=== PATIENT | male | born 1945 | race Caucasian/White ===

== ENCOUNTER → 2020-11-11 12:06 | Outpatient (CLI) | payer MEDICARE, OTHER, SELFPAY ==
[2020-11-11 20:10] LABS: Prostate Specific Antigen 3.06 ng/mL (0.10-4.00)
== END ==
PROVIDERS: Family Provider Family Medicine; Visit Provider Specialist
DX: Z87.898 Personal history of other specified conditions (principal); R97.20 Elevated prostate specific antigen [PSA]; N40.0 Benign prostatic hyperplasia without lower urinary tract symptoms
CPT/HCPCS: 84153

== ENCOUNTER → 2021-01-21 11:40 | Outpatient (CLI) | payer MEDICARE, OTHER, SELFPAY ==
[2021-01-21 20:20] LABS: Alanine Aminotransferase 24 IU/L (<50); Albumin 4.3 g/dL (3.5-5.0); Albumin Globulin Ratio 1.5 (1.0-2.8); Alkaline Phosphatase 86 U/L (38-126); Aspartate Aminotransferase 27 IU/L (17-59); BUN Creatinine Ratio 20.7 (6-22); Bilirubin Total 0.9 mg/dL (0.2-1.3); Blood Urea Nitrogen 17 mg/dL (9-20); Calcium 9.3 mg/dL (8.4-10.2); Carbon Dioxide 26 mmol/L (22-32); Chloride 105 mmol/L (98-107); Cholesterol 182 mg/dL (140-199); Estimated Glomerular Filt Rate > 60.0 mL/min (>60); Globulin 2.8 g/dL (1.7-4.1); Glucose 109 mg/dL (80-110); HDL Cholesterol 56 mg/dL (40-60); HEMOLYSIS < 15 (0-50); LDL Cholesterol Calculated 105 mg/dL (<100); Sodium 138 mmol/L (137-145); Total Protein 7.1 g/dL (6.3-8.2); Triglycerides 106 mg/dL (35-150)
== END ==
PROVIDERS: Family Provider Family Medicine; Visit Provider Family Medicine
DX: E78.5 Hyperlipidemia, unspecified (principal); H53.9 Unspecified visual disturbance; I25.10 Atherosclerotic heart disease of native coronary artery without angina pectoris; I25.119 Atherosclerotic heart disease of native coronary artery with unspecified angina pectoris; I34.1 Nonrheumatic mitral (valve) prolapse
CPT/HCPCS: 80053; 80061

== ENCOUNTER → 2021-10-25 08:43 | Outpatient (CLI) | payer MEDICARE, OTHER, SELFPAY ==
[2021-10-25 19:41] LABS: COVID19 - ORCAS (NP or Nasal) Negative (Negative)
== END ==
PROVIDERS: Family Provider Family Medicine; PCP Family Medicine; Visit Provider Physician Assistant
DX: I49.9 Cardiac arrhythmia, unspecified (principal); Z20.822 Contact with and (suspected) exposure to COVID-19
CPT/HCPCS: C9803; U0003

== ENCOUNTER → 2021-12-13 13:07 | Outpatient (CLI) | payer MEDICARE, OTHER, SELFPAY | PROVIDERS: Family Provider Family Medicine; PCP Family Medicine; Visit Provider Specialist | DX: N40.1 Benign prostatic hyperplasia with lower urinary tract symptoms (principal); R35.1 Nocturia; R97.20 Elevated prostate specific antigen [PSA] | CPT/HCPCS: 84153 ==

== ENCOUNTER → 2022-03-20 07:14 | Outpatient (CLI) | payer MEDICARE, OTHER, SELFPAY ==
[2022-03-20 20:43] LABS: COVID19 - ORCAS (NP or Nasal) Negative (Negative)
== END ==
PROVIDERS: Family Provider Family Medicine; PCP Family Medicine; Visit Provider Family Medicine
DX: Z01.812 Encounter for preprocedural laboratory examination (principal)
CPT/HCPCS: C9803; U0003

== ENCOUNTER → 2022-05-31 13:01 | Outpatient (CLI) | payer MEDICARE, OTHER, SELFPAY ==
[2022-06-04 11:29] LABS: PSA Free % 33.1 % (.); PSA, Total 3.5 ng/mL (0.0-4.0)
== END ==
PROVIDERS: Family Provider Family Medicine; PCP Family Medicine; Visit Provider Specialist
DX: R97.20 Elevated prostate specific antigen [PSA] (principal)
CPT/HCPCS: 84153; 84154

== ENCOUNTER → 2022-06-28 09:34 | Outpatient (CLI) | payer MEDICARE, OTHER, SELFPAY ==
[2022-06-28 19:53] LABS: Cholesterol 137 mg/dL (140-199); Glucose 100 mg/dL (80-110); HDL Cholesterol 36 mg/dL (40-60); LDL Cholesterol Calculated 73 mg/dL (<100); Triglycerides 142 mg/dL (35-150)
[2022-06-28 19:54] LABS: Creatinine Urine Random 92.3 mg/dL
[2022-06-28 19:56] LABS: Microalbumi Creatinin Ratio Ur 87.7 ug/mg CR (<30); Microalbumin Urine Random 8.1 mg/dL (0-1.6)
[2022-06-29 18:02] LABS: Hep C Virus Ab w/Reflex Quant NEGATIVE s/c (NEGATIVE)
== END ==
PROVIDERS: Family Provider Family Medicine; PCP Family Medicine; Visit Provider Family Medicine
DX: Z00.00 Encounter for general adult medical examination without abnormal findings (principal); I25.10 Atherosclerotic heart disease of native coronary artery without angina pectoris; Z11.59 Encounter for screening for other viral diseases; Z13.1 Encounter for screening for diabetes mellitus; Z13.220 Encounter for screening for lipoid disorders
CPT/HCPCS: 80061; 82043; 82570; 82947; 86803

== ENCOUNTER → 2022-09-11 15:45 | Outpatient (CLI) | payer MEDICARE, OTHER, SELFPAY ==
[2022-09-11 16:44] LABS: Appearance Urine UA CLEAR; Bilirubin Urine UA NEGATIVE (NEGATIVE); Color Urine UA YELLOW; Glucose Urine UA NEGATIVE (Negative); Ketones Urine UA TRACE (NEGATIVE); Leukocyte Esterase Urine UA NEGATIVE (NEGATIVE); Nitrite Urine UA NEGATIVE (Negative); Occult Blood Urine UA NEGATIVE (Negative); Protein Urine UA NEGATIVE (Negative); Specific Gravity Urine UA 1.025 (1.000-1.035); Urobilinogen Urine UA 0.2 E.U./dL (0.2); pH Urine UA 5.5 (4.5-8.0)
[2022-09-11 16:49] LABS: Blood Urea Nitrogen 20 mg/dL (9-20); Calcium 8.7 mg/dL (8.4-10.2); Carbon Dioxide 23 mmol/L (22-32); Chloride 106 mmol/L (98-107); Estimated Glomerular Filt Rate 50 mL/min (>60); Glucose 135 mg/dL (80-110); HEMOLYSIS < 15 (0-50); Potassium 4.7 mmol/L (3.4-5.1); Sodium 138 mmol/L (137-145)
[2022-09-11 16:57] LABS: Bacteria Urine None Seen; Basophils Absolute Auto 100 /uL (0-100); Basophils Percent Auto 0.4 % (0-2); Eosinophils Absolute Auto 300 /uL (0-450); Eosinophils Percent Auto 2.2 % (2-4); Hematocrit 40.6 % (41-53); Hemoglobin 13.9 g/dL (13.5-17.5); Lymphocytes Absolute Auto 8000 /uL (1100-4500); Lymphocytes Percent Auto 54.1 % (25-40); Mean Corpuscular HGB Conc 34.4 % (30-36); Mean Corpuscular Hemoglobin 30.8 PG (26-34); Mean Corpuscular Volume 89.5 fL (80-100); Monocytes Absolute Auto 1000 /uL (0-900); Monocytes Percent Auto 6.5 % (3-14); Neutrophils Absolute Auto 5400 /uL (1500-7000); Neutrophils Percent Auto 36.8 % (50-75); Platelet Count 198 X10^3/uL (150-400); RBC Urine None Seen (0-5/HPF); Red Blood Cell Count 4.53 X10^6/uL (4.5-5.9); Red Cell Distribution Width 13.2 % (11.6-14.8); WBC Urine None Seen (0-5/HPF); White Blood Cell Count 14.8 X10^3/uL (4.5-11.0)
[2022-09-11 16:58] LABS: Culture Indicated Urine Cult Not Indicated; Mucus Urine 1+ (Negative)
[2022-09-11 17:05] LABS: Add Manual Diff / Slide Review SLIDE REVIEW
[2022-09-11 17:06] LABS: RBC Morphology Normal Morphology; Smudge Cells 1+
[2022-09-11 17:08] LABS: WBC Morphology Comment Send for Path Review
[2022-09-12 03:10] LABS: Labcorp Hemoglobin (Hb) A1c 6.3 % (4.8-5.6)
== END ==
LOC: RAD 16:09 → RESP 16:51
PROVIDERS: Family Provider Family Medicine; PCP Family Medicine; Referring Provider Orthopaedic Surgery; Visit Provider Orthopaedic Surgery
DX: Z01.818 Encounter for other preprocedural examination (principal); R73.9 Hyperglycemia, unspecified; Z01.812 Encounter for preprocedural laboratory examination; N39.0 Urinary tract infection, site not specified
CPT/HCPCS: 36415; 80048; 81001; 83036; 85025; 93005; 93010

== ENCOUNTER 2022-10-03 08:39 | Day surgery (SDC) | payer MEDICARE, OTHER, SELFPAY ==
[2022-09-27 12:00] VITALS: BMI 24.4
[2022-10-03] VITALS (9 sets, daily range): BP systolic 106–134; BP diastolic 59–81; PULSE 63–70; RESP 10–20; TEMP 35.9–36.4; O2SAT 92–98; BMI 24.4
[2022-10-03] MEDS: LACTATED RINGERS 1,000 ML 42 ML IV (09:21)
[2022-10-03] MEDS: VANCOMYCIN 1,000 MG/200 ML PIGGYBACK 200 MG IV (10:11)
--- NOTE | 2022-10-03 10:30 | PM.PREOP ---
Pre-operative Note Interval Note History & Physical reviewed/Exam performed by Physician: Yes Changes to H&P: No
--- NOTE | 2022-10-03 10:42 | PM.OP.1 ---
Operative Date/Time/Diagnoses Date of procedure: 10/03/22 Time of procedure: 10:42 Pre-op diagnosis: Severe left knee osteoarthritis Post-op diagnosis: same Procedure & Clinicians Procedure: Left knee medial unicompartment replacement Same procedure as scheduled: Yes Indications: The patient has had progressively worsening left knee pain with radiographic changes consistent with arthritis. Non-operative management has failed and the patient has requested medial unicompartment knee replacement. The risks, benefits and alternatives to surgery were discussed with the patient prior to proceeding. Risks discussed included, but were not limited to, failure to relieve pain, stiffness, infection, nerve damage, deep venous thrombosis, pulmonary embolism, stroke, coma, heart attack, permanent paralysis and , as well as the potential need for eventual revision of the prosthetic. Surgeon: Silvia Agarwal Hotel Security Officer: Roberto Carter Anesthesia Type: General Operative Notes Findings: Severe left knee medial compartment arthritis, adequate quality bone Closure Type: primary Specimen(s): none sent Prosthetic devices, grafts, tissues, transplants, or devices: Agarwal and nephew medial unicompartment replacement size femur 7, size tibia 7, polyethylene 8 Estimated Blood Loss (mL): 150 Blood products transfused: none Tourniquet time (min): 69 Procedure in detail: The patient was seen in the pre-operative area, where the left knee was identified as the operative site and this was marked with my initials. The patient received pre-operative antibiotics, and was taken to the operating room and placed on the operative table in the supine position. After satisfactory anesthesia, a time analysis clerk out was performed. The left leg was encircled with a tourniquet about the proximal thigh, and the leg was prepared from the toes to the tourniquet with ChloroPrep in the usual fashion and draped through sterile drapes. The leg was elevated and exsanguinated with Eschmark bandage and the tourniquet inflated to [250] mmHg pressure. A PA was used throughout the procedure and was essential for adequate retraction and intraoperative positioning. Is was also important for achieving adequate hemostasis. The knee was approached through an approximately 10 cm incision medial parapatella incision and carried into the knee through a medial parapatellar arthrotomy. The osteophytes and medial meniscus were removed. Next, a small amount of the anterior tibial boss was carefully resected with a saw. The guide was placed along the medial joint line. It was meticulously adjusted to make sure there was appropriate slope that it was at the joint line and then was pinned to the tibia. The tibia was cut in flexion. The gap balancing guide was placed. The medial femoral condylar cut was made in extension. The bone was meticulously irrigated with normal saline. Small amount of additional meniscus was resected posterior capsule was checked and injected with Marcaine. The extension gap was carefully checked with an 8 mm gap pensionholder information clerk was noted that it fit well. A small number of additional osteophytes were resected. The tibia was a size [7]. It was noted that it fit without overhang. The femur was sized and it was noted to be a [7]. The appropriate cutting guide was pinned into place and carefully positioned on the femoral condyle. Drill holes were placed. The tibia was pinned into place and drill holes were made. Trial reduction with the appropriate poly showed full range of motion and good stability at 0, 45. and 90? with normal tracking of the components without edge loading. The bone was meticulously irrigated and dried. Additional Marcaine was injected. The posterior capsule was injected with 0.25% Marcaine mixed with 20 ml Exparel for post-operative pain control. The remainder of this mixture was injected into the capsule and subcutaneous tissues during cement curing. Range of motion was [0-130], with good stability throughout the range. The trials were then remove. The cement was as applied and the final prosthetics placed. Excess cement was removed during and after cement curing. A brief medial compartment Betadine soak was performed. After confirming there was no extruded cement posteriorly, the final tibial insert was placed. The knee was copiously irrigated and the tourniquet deflated. Hemostasis was obtained. The capsule was closed with interrupted vicryl. The subcutaneous tissue was closed with barbed sutures. The skin with a running 3-0 V-Lock suture and surgical glue. An Aquacel Ag dressing was applied and the patient was taken to recovery having tolerated the procedure well. Complications: none Post-operative Condition: stable Disposition: same day surgery Plan for aftercare: The patient will be maintained on a standard unicompartment knee replacement protocol with weight bearing as tolerated. The patient will receive Eliquis and sequential compression devices for DVT prophylaxis. The patient will be discharged home when safe for the home environment.
[2022-10-03] MEDS: CEFAZOLIN 2 GM/100 ML PREMIX 100 ML IV (11:15)
[2022-10-03] MEDS: TRANEXAMIC ACID 1,000 MG in SODIUM CHLORIDE 0.9% 100 ML 200 MG IV (11:30)
--- NOTE | 2022-10-03 11:31 | SUR.OPER ---
Supine on padded OR bed. Pillow under head, arms secured on padded armboards <90 degree abduction. Safety belt across torso. Non-operative leg secured with tape over blanket over lower leg. Operative leg secured in Sebastian positioner. Foam padded brace at thigh of operative leg.
[2022-10-03] MEDS: BUPIVACAINE LIPOSOME 266 MG/20 ML VIAL INJ (11:41)
[2022-10-03] MEDS: BUPIVACAINE 0.25% (PF) 60 ML, EPINEPHrine 0.3 MG INJ (11:42)
--- NOTE | 2022-10-03 13:30 | DI.RAD.S_ITS ---
PROCEDURE: XR KNEE LT 1TO2V INDICATIONS: LEFT MEDIAL KNEE TECHNIQUE: 2 view(s) of the knee acquired. COMPARISON: None. FINDINGS: Bones: Patient is status post knee medial riri- arthroplasty. Hardware components are in expected positions. Visualized bony structures are intact. Soft tissues: Overlying postoperative changes are noted. IMPRESSION: Expected postsurgical change for left knee hemiarthroplasty. Dictated by: Vonnie Banerjee MD, PhD on 10/03/2022 at 13:38 Approved by: Vonnie Banerjee MD, PhD on 10/03/2022 at 13:38
== END 2022-10-03 14:38 | disposition home or self-care (01) ==
PROVIDERS: Family Provider Family Medicine; PCP Family Medicine; Referring Provider Orthopaedic Surgery; Visit Provider Orthopaedic Surgery
PROC: (CPT 27446; principal; 2022-10-03 10:45)
DX: M17.32 Unilateral post-traumatic osteoarthritis, left knee (principal); I25.10 Atherosclerotic heart disease of native coronary artery without angina pectoris; I51.9 Heart disease, unspecified
CPT/HCPCS: 27447; 73560; C1776; C1713; C9290; J0171; J0690; J1100; J1170; J2405; J2704

== ENCOUNTER 2023-01-21 13:54 | Emergency (ER) | payer MEDICARE, OTHER, SELFPAY ==
[2023-01-21] VITALS (16 sets, daily range): BP systolic 121–157; BP diastolic 63–83; PULSE 49–54; RESP 12–24; TEMP 36.6–36.8; O2SAT 95–98; BMI 24.4
[2023-01-21 14:55] LABS: Add Manual Diff / Slide Review NO; Basophils Absolute Auto 100 /uL (0-100); Basophils Percent Auto 0.8 % (0-2); Eosinophils Absolute Auto 200 /uL (0-450); Eosinophils Percent Auto 1.5 % (2-4); Hematocrit 42.4 % (41-53); Hemoglobin 14.2 g/dL (13.5-17.5); Lymphocytes Absolute Auto 9700 /uL (1100-4500); Lymphocytes Percent Auto 61.1 % (25-40); Mean Corpuscular HGB Conc 33.5 % (30-36); Mean Corpuscular Hemoglobin 30.1 PG (26-34); Mean Corpuscular Volume 89.8 fL (80-100); Monocytes Absolute Auto 900 /uL (0-900); Monocytes Percent Auto 5.5 % (3-14); Neutrophils Absolute Auto 4900 /uL (1500-7000); Neutrophils Percent Auto 31.1 % (50-75); Platelet Count 164 X10^3/uL (150-400); Red Blood Cell Count 4.72 X10^6/uL (4.5-5.9); White Blood Cell Count 15.8 X10^3/uL (4.5-11.0)
--- NOTE | 2023-01-21 15:04 | DI.CT.S_ITS ---
PROCEDURE: CT ABDOMEN PELVIS W CON INDICATIONS: RLQ PAIN, PREV HERNIA TECHNIQUE: After the administration of intravenous contrast, axial sections acquired from the lung bases to the pubic symphysis. Coronal and sagittal reformats were performed. For radiation dose reduction, the following was used: automated exposure control, adjustment of mA and/or kV according to patient size. COMPARISON: None. FINDINGS: Image quality: Excellent. Lung bases: Multiple pulmonary nodules, predominantly within the left lower lobe measuring 6 mm or less. Heart: Mild cardiomegaly with mild multivessel coronary artery calcifications. ABDOMEN: Liver: Increased attenuation within the right posterior [place] lobe, may represent perfusion anomaly. No definite mass is seen. Gallbladder: Unremarkable. Biliary ducts: Unremarkable. Pancreas: Unremarkable. Spleen: Unremarkable. Adrenal Glands: Unremarkable. Kidneys and Ureters: Duplicated left renal collecting system. Bilateral renal cysts, the largest being an exophytic cyst arising from the inferior pole the left kidney. Stomach and Bowel: Small hiatal hernia. Stomach, small bowel loops, and colon are unremarkable. Extensive sigmoid diverticulosis without evidence of acute diverticulitis. Large burden of stool throughout the colon. Peritoneum: No abnormal intraperitoneal fluid. No free air. Ventral Wall: Small fat containing umbilical hernia.. Abdominal Nodes: No retroperitoneal or mesenteric adenopathy by size criteria. Vessels: Aorta and inferior vena cava are normal in size. Atherosclerotic vascular calcifications. PELVIS: Pelvic Organs: The prostate is markedly enlarged measuring up to 8 cm. . Bladder: Prostate indents the inferior aspect of the bladder. Urinary bladder is otherwise normal in appearance without wall thickening. Pelvic Nodes: Multiple enlarged lymph nodes within the pelvis. The largest being a right pelvic sidewall lymph node measuring 2.1 x 2.9 cm. Miscellaneous: No hernias are seen. Bones: Degenerative changes of the lumbar spine with mild anterolisthesis of L4 on L5. No aggressive osseous lesions. IMPRESSION: 1. Markedly enlarged prostate gland measuring up to 8 cm in transverse dimension. May represent BPH, malignancy is not excluded. Recommend correlation with PSA. 2. Multiple enlarged pelvic lymph nodes concerning for metastatic disease. 3. Multiple pulmonary nodules, primarily within left lower lobe measuring 6 mm or less, concerning for metastatic disease. 4. Diverticulosis without evidence of acute diverticulitis. 5. Large burden of stool throughout the colon, correlate for constipation. 6. Incidental note of duplicated left renal collecting system. Dictated by: Kaveh Adame M.D. on 01/21/2023 at 15:58 Approved by: Kaveh Adame M.D. on 01/21/2023 at 16:06
[2023-01-21 15:06] LABS: Alanine Aminotransferase 32 IU/L (<50); Albumin 4.2 g/dL (3.5-5.0); Albumin Globulin Ratio 1.4 (1.0-2.8); Alkaline Phosphatase 71 U/L (38-126); Aspartate Aminotransferase 27 IU/L (17-59); BUN Creatinine Ratio 15.7 (6-22); Bilirubin Total 0.8 mg/dL (0.2-1.3); Blood Urea Nitrogen 16 mg/dL (9-20); Calcium 9.2 mg/dL (8.4-10.2); Carbon Dioxide 25 mmol/L (22-32); Chloride 109 mmol/L (98-107); Estimated Glomerular Filt Rate > 60 mL/min (>60); Glucose 101 mg/dL (80-110); HEMOLYSIS < 15 (0-50); Lipase 56 U/L (23-300); Potassium 4.4 mmol/L (3.4-5.1); Sodium 139 mmol/L (137-145); Total Protein 7.2 g/dL (6.3-8.2)
--- NOTE | 2023-01-21 15:17 | ED_ITS ---
HPI - Abdominal Pain General Chief Complaint: Abdominal Pain Stated Complaint: right lower abd pain and into groin Time Seen by Provider: 01/21/23 14:32 Source: patient and family Mode of arrival: Ambulatory History of Present Illness HPI narrative: 78-year-old male with previous history of CLL (reported in remission), AFib on Eliquis presents by private vehicle from home for 2-3 months of RLQ abdominal pain. Patient has remote hx of hernia repair with mesh and reports concern that the mesh may be displaced or a new hernia has formed. Pain seems to be related to changes in position, is sharp, does not radiate. No medications taken at home for symptoms. Pain initially mild, however has gradually worsened and today it was even sharper than usual so he decided to present for evaluation. Related Data Home Medications Medication Instructions Recorded Confirmed famotidine 20 mg tablet 20 mg PO DAILY 11/16/20 01/25/23 ibuprofen 400 mg tablet 400 mg PO DAILY PRN Pain 11/16/20 01/25/23 metoprolol succinate 25 mg 25 mg PO BEDTIME 02/10/22 01/25/23 tablet,extended release 24 hr apixaban 5 mg tablet (Eliquis) 5 mg PO BID Heart Arthymia 06/01/22 01/25/23 dronedarone 400 mg tablet (Multaq) 400 mg PO BID Heart Arthymia 06/01/22 01/25/23 sildenafil (pulm.hypertension) 20 20 mg PO DAILY PRN Sexual Activity 09/27/22 01/25/23 mg tablet Previous Rx's Medication Instructions Recorded finasteride 5 mg tablet 5 mg PO DAILY #90 tabs 05/26/22 atorvastatin 40 mg tablet (Lipitor) 40 mg PO HS #90 tabs 06/21/22 ezetimibe 10 mg tablet (Zetia) 10 mg PO DAILY #90 tabs 08/24/22 tamsulosin 0.4 mg capsule See Rx Instructions .Route 09/22/22 .COMPLEX #90 caps gabapentin 100 mg capsule 100 mg PO TID #60 caps 01/18/23 zolpidem 5 mg tablet (Ambien) 5 mg PO BEDTIME PRN Sleep #20 tabs 01/23/23 Allergies Allergy/AdvReac Type Severity Reaction Status Date / Time codeine [CODEINE] AdvReac Severe Hallucinati Verified 01/25/23 16:24 ng oxycodone [From OxyContin] AdvReac Severe Hallucinati Verified 01/25/23 16:24 ng loratadine [LORATADINE] AdvReac Mild Back Pain Verified 01/25/23 16:24 Review of Systems Review of Systems Narrative: CONSTITUTIONAL- Denies: fever, chills, fatigue HEENT- Denies: sore throat, nosebleed, vision changes RESPIRATORY- Denies: shortness of breath, cough, wheezing CARDIAC- Denies: chest pain, edema, orthopnea GI- Denies: abdominal pain, nausea, vomiting, constipation, diarrhea - Denies: frequency, dysuria, hematuria, flank pain MSK- Denies: extremity pain, extremity swelling, joint pain, joint swelling SKIN- Denies: rash, itching, burn, swelling NEUROLOGICAL- Denies: headache, numbness, weakness, dizziness PSYCHIATRIC- Denies: anxiety, depression, suicidal ideation, homicidal ideation Patient History Medical History Transient disorder of initiating or maintaining sleep History of cardioversion Presence of cardiac device (~12/01/20) BPH (benign prostatic hyperplasia) GERD (gastroesophageal reflux disease) CLL (chronic lymphocytic leukemia) (2018) Tinnitus (~2015) Recurrent sinusitis Hearing loss (~2017) Blindness (~2014) Colon polyps (~2019) Screening for prostate cancer Postoperative atrial fibrillation Erectile dysfunction due to arterial disease Elevated PSA Hernia Surgical History Hx of hand surgery Hx of sinus surgery (2021) Hx of repair of left rotator cuff (2014) Anesthesia Broken humerus (~2004) History of hernia repair (~1987) History of arthroscopy of knee (~1983) H/O mitral valve replacement (2014) H/O circumcision Hx of CABG (2014) Family History Father BPH (benign prostatic hyperplasia) Diabetes mellitus Hearing impairment History of heart disease Mother Cancer Coronary artery disease Hyperlipidemia Inflammatory bowel disease Thyroid disease Sister Mental health problem Grandfather History of heart disease Grandmother Cancer Grandfather Mental health problem Family/Other Cancer Social History marital status: number of children: 2 household members: spouse occupational status: employed Smoking Status: Never smoker alcohol intake: current caffeine: Yes (coffee) Type(s) of exercise: additional frequency: 3-4 times per week Smoking Status: Never smoker alcohol intake frequency: a few times a week Substance Use Type: does not use Exam Initial Vital Signs Initial Vital Signs: Vital Signs Temperature 97.9 F 01/21/23 14:18 Pulse Rate 54 L 01/21/23 14:18 Respiratory Rate 16 01/21/23 14:18 Blood Pressure 140/70 01/21/23 14:18 Pulse Oximetry 98 01/21/23 14:18 Oxygen Delivery Method Room Air 01/21/23 14:18 Const: Awake, alert, no acute distress, nontoxic appearing Eyes: PERRL, EOMI, conjunctiva normal ENT: Atraumatic, dentition normal, mucous membranes moist Cardiac: regular rate, regular rhythm RESP: unlabored, clear bilaterally, no wheezing GI: Atraumatic, soft, nontender, nondistended, no rebound, no guarding : chaeprone present. No hernia, no testicular pain MSK: Atraumatic, full range of motion, pulses equal Skin: Warm, Dry, intact, no rashes Neuro: AO x3, CN II-XII grossly intact, moves all extremities Psych: affect normal, mood normal, not suicidal, not homicidal Course Course Course Narrative: Several months of gradually worsening abdominal pain. Patient reports concern that his hernia mesh may have failed, however when standing there is no hernia present. No testicular symptoms. Abdomen is soft, no reproducible tenderness to palpation. We will obtain labs and imaging. Patient declines any medications for pain at this time as he is currently pain-free. Orders Ordered: Discontinued Medications Ondansetron HCl (Ondansetron 4 Mg Odt) 4 mg PO NOW PRN PRN Reason: Nausea And Vomiting Ondansetron HCl (Ondansetron 4 Mg/2 Ml Inj) 4 mg IV NOW PRN PRN Reason: Nausea And Vomiting Reevaluation(s) Reevaluation #1: Laboratory work is reviewed, significant for leukocytosis, however patient states that this is chronic for him following his CLL and it is at baseline. CT of the abdomen and pelvis is concerning for large prostate gland as well as multiple pelvic lymph nodes, particularly in the right lower quadrant concerning for metastatic disease. The additionally there are multiple pulmonary nodules, also concerning for metastatic disease. Unknown primary. Copy of CT report and labs provided to patient and his son at bedside. I explained the enlarged lymph nodes and concern for possible metastatic disease of unknown primary origin. Patient stated he will call his oncology team for a follow up appointment. Pain medications offered for home, however patient states that he has leftover tramadol from a recent knee replacement surgery and declined an additional prescription. ED return precautions discussed at bedside. Patient expressed understanding of the plan and is in agreement at this time. All questions answered at the time of discharge. Vital Signs Vital signs: Vital Signs - 8 hr 01/21/23 14:18 01/21/23 14:42 01/21/23 14:43 Temperature 97.9 F Pulse Rate 54 L 50 L 51 L Respiratory Rate 16 24 19 Blood Pressure 140/70 Pulse Oximetry 98 98 96 Oxygen Delivery Method Room Air 01/21/23 14:43 01/21/23 14:52 01/21/23 14:52 Temperature Pulse Rate 53 L Respiratory Rate 17 Blood Pressure 155/82 H 135/70 Pulse Oximetry 97 Oxygen Delivery Method 01/21/23 14:53 01/21/23 14:53 01/21/23 15:00 Temperature Pulse Rate 54 L 53 L Respiratory Rate 13 18 Blood Pressure 139/75 Pulse Oximetry 96 97 Oxygen Delivery Method 01/21/23 15:05 01/21/23 15:05 01/21/23 15:16 Temperature Pulse Rate 51 L 49 L Respiratory Rate 14 24 Blood Pressure 147/70 H Pulse Oximetry 95 98 Oxygen Delivery Method 01/21/23 15:16 01/21/23 15:30 01/21/23 15:31 Temperature Pulse Rate 49 L 49 L Respiratory Rate 24 18 Blood Pressure 130/70 Pulse Oximetry 98 96 Oxygen Delivery Method 01/21/23 15:31 Temperature Pulse Rate Respiratory Rate Blood Pressure 138/63 Pulse Oximetry Oxygen Delivery Method MDM - Abdominal Pain Differential Diagnosis Differential diagnosis: Likely abdominal pain, acute appendicitis and constipation Lab Data 01/21/23 11:44 01/21/23 11:44 Labs: Lab Results 01/21/23 Range/Units 11:44 WBC 15.8 H (4.5-11.0) X10^3/uL RBC 4.72 (4.5-5.9) X10^6/uL Hgb 14.2 (13.5-17.5) g/dL Hct 42.4 (41-53) % MCV 89.8 (80-100) fL MCH 30.1 (26-34) PG MCHC 33.5 (30-36) % RDW 13.0 (11.6-14.8) % Plt Count 164 (150-400) X10^3/uL Neut % (Auto) 31.1 L (50-75) % Lymph % (Auto) 61.1 H (25-40) % [place] % (Auto) 5.5 (3-14) % Eos % (Auto) 1.5 L (2-4) % Baso % (Auto) 0.8 (0-2) % Neut # (Auto) 4900 (7279-7646) /uL Lymph # (Auto) 9700 H (8830-8622) /uL [place] # (Auto) 900 (0-900) /uL Eos # (Auto) 200 (0-450) /uL Baso # (Auto) 100 (0-100) /uL Sodium 139 (137-145) mmol/L Potassium 4.4 (3.4-5.1) mmol/L Chloride 109 H (98-107) mmol/L Carbon Dioxide 25 (22-32) mmol/L BUN 16 (9-20) mg/dL Creatinine 1.02 (0.66-1.25) mg/dL Estimated GFR > 60 (>60) mL/min BUN/Creatinine Ratio 15.7 (6-22) Glucose 101 (80-110) mg/dL Calcium 9.2 (8.4-10.2) mg/dL Total Bilirubin 0.8 (0.2-1.3) mg/dL AST 27 (17-59) IU/L ALT 32 (<50) IU/L Alkaline Phosphatase 71 (38-126) U/L Total Protein 7.2 (6.3-8.2) g/dL Albumin 4.2 (3.5-5.0) g/dL Globulin 3.0 (1.7-4.1) g/dL Albumin/Globulin Ratio 1.4 (1.0-2.8) Lipase 56 (23-300) U/L Point of care testing: Urine Dip Bedside Urine Glucose Negative Bedside Urine Bilirubin - Negative Bedside Urine Ketone - Negative Urine Specific [place] 1.030 Bedside Urine Occult Blood - Negative Bedside Urine pH 5.5 Bedside Urine Protein - Negative Bedside Urine Urobilinogen - Negative Bedside Urine Nitrite - Negative Bedside Urine Leukocytes - Negative Esterase Discharge Plan Departure Patient Disposition: Home Clinical Impression: Abdominal pain, Abnormal abdominal CT scan, Pelvic lymphadenopathy Instructions: DI for Abdominal Pain-Adult Prescriptions: No Action finasteride 5 mg tablet 5 mg PO DAILY Qty: 90 3RF atorvastatin [Lipitor] 40 mg tablet 40 mg PO HS Qty: 90 3RF tamsulosin 0.4 mg capsule See Rx Instructions .ROUTE .COMPLEX Qty: 90 1RF Dose Instruction: TAKE 1 CAPSULE EVERY DAY Rx Instructions: TAKE 1 CAPSULE EVERY DAY sildenafil (pulm.hypertension) 20 mg tablet 20 mg PO DAILY PRN (Reason: Sexual Activity) Rx Instructions: Take 1-3 tablets by mouth daily as needed and as directed. gabapentin 100 mg capsule 100 mg PO TID Qty: 60 0RF metoprolol succinate 25 mg tablet extended release 24 hr 25 mg PO BEDTIME Multaq 400 mg tablet 400 mg PO BID Eliquis 5 mg tablet 5 mg PO BID ezetimibe [Zetia] 10 mg tablet 10 mg PO DAILY Qty: 90 3RF zolpidem [Ambien] 5 mg tablet 5 mg PO BEDTIME PRN (Reason: Sleep) Qty: 20 0RF Rx Instructions: prn sleep difficulty due to travel famotidine 20 mg tablet 20 mg PO DAILY ibuprofen 400 mg tablet 400 mg PO DAILY PRN (Reason: Pain) Referrals: Roge Jacob MD [Primary Care Provider] - Stand Alone Forms: Patient Portal/API
--- NOTE | 2023-01-21 15:47 | PC.NURSE ---
Pt states his resting HR is mid to high 50's. Pt's son states his dad is magi at baseline. Physician aware.
== END 2023-01-21 16:54 | disposition home or self-care (01) ==
PROVIDERS: Emergency Provider Emergency Medicine; Family Provider Family Medicine; PCP Family Medicine
DX: R10.31 Right lower quadrant pain (principal); R93.5 Abnormal findings on diagnostic imaging of other abdominal regions, including retroperitoneum
CPT/HCPCS: 36415; 74177; 80053; 81003; 83690; 85025; 93005; 99283; 99284; Q9967

== ENCOUNTER 2023-01-25 16:56 | Emergency (ER) | payer MEDICARE, OTHER, SELFPAY ==
[2023-01-25 17:05] VITALS: BP 118/60; PULSE 74; RESP 20; TEMP 37; O2SAT 98; BMI 24.4
--- NOTE | 2023-01-25 17:13 | DI.US.S_ITS ---
PROCEDURE: US ABDOMEN LIMITED INDICATIONS: HERNIA. TECHNIQUE: Real-time scanning was performed of the abdominal and retroperitoneal organs, with image documentation. COMPARISON: [facility], CT, CT ABDOMEN PELVIS W CON, 01/21/2023, 15:20. FINDINGS: Ultrasound was performed in in the right groin with the patient in erect position with and without Valsalva. A right inguinal hernia is identified, which containing peristalsing bowel. IMPRESSION: There is a bowel containing right inguinal hernia. Dictated by: Jeovany Jackson M.D. on 01/25/2023 at 18:47 Approved by: Jeovany Jackson M.D. on 01/25/2023 at 18:49
--- NOTE | 2023-01-25 18:11 | ED.ABDPAIN ---
HPI - Abdominal Pain General Chief Complaint: Abdominal Pain Stated Complaint: SENT BY SURGEONS to get a US of abd Time Seen by Provider: 01/25/23 18:05 Source: patient Mode of arrival: Ambulatory History of Present Illness HPI narrative: 78-year-old male nonsmoker with history of coronary artery disease, status post CABG, CLL presents at the request of [facility] for evaluation of painful right groin mass. He states that he has been having a tender bulge in his right groin that seems to be worse when he stands and goes away when he lies flat for about 2 weeks. He does state that he had a surgery on hernia about 30 years ago but is afraid it may have failed. He was sent by [facility] for a standing abdominal ultrasound. He denies fever or chills. He has no nausea or vomiting. He denies trouble moving his bowels and has no difficulty with urination. Related Data Home Medications Medication Instructions Recorded Confirmed famotidine 20 mg tablet 20 mg PO DAILY 11/16/20 01/25/23 ibuprofen 400 mg tablet 400 mg PO DAILY PRN Pain 11/16/20 01/25/23 metoprolol succinate 25 mg 25 mg PO BEDTIME 02/10/22 01/25/23 tablet,extended release 24 hr apixaban 5 mg tablet (Eliquis) 5 mg PO BID Heart Arthymia 06/01/22 01/25/23 dronedarone 400 mg tablet (Multaq) 400 mg PO BID Heart Arthymia 06/01/22 01/25/23 sildenafil (pulm.hypertension) 20 20 mg PO DAILY PRN Sexual Activity 09/27/22 01/25/23 mg tablet Previous Rx's Medication Instructions Recorded finasteride 5 mg tablet 5 mg PO DAILY #90 tabs 05/26/22 atorvastatin 40 mg tablet (Lipitor) 40 mg PO HS #90 tabs 06/21/22 ezetimibe 10 mg tablet (Zetia) 10 mg PO DAILY #90 tabs 08/24/22 tamsulosin 0.4 mg capsule See Rx Instructions .Route 09/22/22 .COMPLEX #90 caps gabapentin 100 mg capsule 100 mg PO TID #60 caps 01/18/23 zolpidem 5 mg tablet (Ambien) 5 mg PO BEDTIME PRN Sleep #20 tabs 01/23/23 Allergies Allergy/AdvReac Type Severity Reaction Status Date / Time codeine [CODEINE] AdvReac Severe Hallucinati Verified 01/25/23 16:24 ng oxycodone [From OxyContin] AdvReac Severe Hallucinati Verified 01/25/23 16:24 ng loratadine [LORATADINE] AdvReac Mild Back Pain Verified 01/25/23 16:24 Review of Systems Review of Systems Narrative: GENERAL: Denies chills, fatigue, malaise, fever, sweats. HEENT: Denies sinus pain, ear pain, sore throat, difficulty swallowing, dizziness. RESPIRATORY: Denies dyspnea, cough, wheezing, hemoptysis, sputum. CARDIOVASCULAR: Denies chest pain, palpitations, orthopnea, edema, GASTROINTESTINAL: See HPI : Denies dysuria, frequency, incontinence, hematuria, urinary retention. MUSCULOSKELETAL: denies weakness, joint pain, or bony pain SKIN: Denies rash, skin lesions, or other NEUROLOGIC: Denies weakness, headache, numbness, change in speech, confusion, seizures, incoordination. PSYCHIATRIC: No concerning psychosocial issues. 12 point review of systems is negative except for those stated above Patient History Medical History Transient disorder of initiating or maintaining sleep History of cardioversion Presence of cardiac device (~12/01/20) BPH (benign prostatic hyperplasia) GERD (gastroesophageal reflux disease) CLL (chronic lymphocytic leukemia) (2018) Tinnitus (~2015) Recurrent sinusitis Hearing loss (~2017) Blindness (~2014) Colon polyps (~2019) Screening for prostate cancer Postoperative atrial fibrillation Erectile dysfunction due to arterial disease Elevated PSA Hernia Surgical History Hx of hand surgery Hx of sinus surgery (2021) Hx of repair of left rotator cuff (2014) Anesthesia Broken humerus (~2004) History of hernia repair (~1987) History of arthroscopy of knee (~1983) H/O mitral valve replacement (2014) H/O circumcision Hx of CABG (2014) Family History Father BPH (benign prostatic hyperplasia) Diabetes mellitus Hearing impairment History of heart disease Mother Cancer Coronary artery disease Hyperlipidemia Inflammatory bowel disease Thyroid disease Sister Mental health problem Grandfather History of heart disease Grandmother Cancer Grandfather Mental health problem Family/Other Cancer Social History marital status: number of children: 2 household members: spouse occupational status: employed Smoking Status: Never smoker alcohol intake: current caffeine: Yes (coffee) Type(s) of exercise: additional frequency: 3-4 times per week Smoking Status: Never smoker alcohol intake frequency: a few times a week Substance Use Type: does not use Exam Narrative Exam Narrative: GEN: AOx3 and in mild distress EYES: Pupils are equal, round, and reactive to light and accommodation. Extraoccular muscles are intact bilaterally. There is no subconjunctival hemorrhage or exudate. CHEST: Lungs are clear to auscultation bilaterally and free of wheezes, rales, or rhonchi. Heart rate is regular rhythm, there are no murmurs, clicks, rubs, or gallops. There is no chest wall tenderness. ABD: Abdomen is soft and nontender. There is no guarding or rebound. Bowel sounds are normal in all 4 quadrants. There is no mass or organomegaly. : Patient examined in standing position, tenderness in R inguinal region with probably palpable rent. No obvious mass, testicular pain, swelling or redness EXT: Full painless ROM of all extremities with no loss of sensation or strength. SKIN: Warm, pink, and dry. No erythema or rash Initial Vital Signs Initial Vital Signs: Vital Signs Temperature 98.6 F 01/25/23 17:05 Pulse Rate 74 01/25/23 17:05 Respiratory Rate 20 01/25/23 17:05 Blood Pressure 118/60 01/25/23 17:05 Pulse Oximetry 98 01/25/23 17:05 Oxygen Delivery Method Room Air 01/25/23 17:05 Course Orders Ordered: ED Orders 01/25/23 17:13 US abdomen limited Stat Consultations Consultation #1: Discussed with on-call General surgery, Dr. Monge, recommends pain control, follow up. Likely next Sunday Vital Signs Vital signs: Vital Signs - 8 hr 01/25/23 17:05 01/25/23 18:37 01/25/23 19:18 Temperature 98.6 F Pulse Rate 74 53 L 76 Respiratory Rate 20 16 18 Blood Pressure 118/60 124/65 111/72 Pulse Oximetry 98 95 96 Oxygen Delivery Method Room Air Room Air Room Air MDM - Abdominal Pain MDM Narrative Medical decision making narrative: [78] year old patient presents with groin pain Multiple etiologies for patient's symptoms considered including, but not limited to: [Hernia versus rent versus necrotic lymph node versus other] Prior Charts reviewed in our EMR Primary Historian: patient Imaging reviewed: Ultrasound demonstrates right groin hernia Consultations: Discussed with surgery, see details above Patient's symptoms improved over duration of stay with above-stated therapies. Discussed importance of avoiding straining on the toilet, lifting heavy objects. Discussed techniques for manual reduction at home. Discussed return precautions including but not limited to a hernia that will not reduce, increasing pain, vomiting, inability to have a bowel movement versus other Findings and discharge diagnosis discussed with patient/family followed by verbalization of understanding Return precautions discussed with patient/family whom verbalize understanding of diagnosis and plan Discharge Plan Departure Patient Disposition: Home Clinical Impression: Hernia, inguinal, right Instructions: DI for Groin Hernia Activity Restrictions/Additional Instructions: *You have been diagnosed with [right inguinal hernia] *What to do: *Please continue to take your regular medications as directed. [ ] New medication prescriptions sent to your pharmacy: [ ] [ ] New medication written as a paper prescription [ ] No new medications given * as we discussed I have been in close contact with Dr. Monge and his office will reach out to you to discuss a plan moving forward * between now and when you follow-up with Dr. Monge, please avoid things that build up a pressure in your abdomen such as heavy lifting, straining on the toilet, being on your feet too long. If it feels like the hernia has come out lying flat with your hips flexed and knees bent while applying steady pressure over the hernia will generally reduce it within a few minutes. *Return to Emergency Department if you should have any new, worsening or concerning symptoms, such as [fever greater than 101 F, shaking chills, worsening pain, persistent vomiting or other bothersome symptoms] Prescriptions: No Action finasteride 5 mg tablet 5 mg PO DAILY Qty: 90 3RF atorvastatin [Lipitor] 40 mg tablet 40 mg PO HS Qty: 90 3RF tamsulosin 0.4 mg capsule See Rx Instructions .ROUTE .COMPLEX Qty: 90 1RF Dose Instruction: TAKE 1 CAPSULE EVERY DAY Rx Instructions: TAKE 1 CAPSULE EVERY DAY sildenafil (pulm.hypertension) 20 mg tablet 20 mg PO DAILY PRN (Reason: Sexual Activity) Rx Instructions: Take 1-3 tablets by mouth daily as needed and as directed. gabapentin 100 mg capsule 100 mg PO TID Qty: 60 0RF metoprolol succinate 25 mg tablet extended release 24 hr 25 mg PO BEDTIME Multaq 400 mg tablet 400 mg PO BID Eliquis 5 mg tablet 5 mg PO BID ezetimibe [Zetia] 10 mg tablet 10 mg PO DAILY Qty: 90 3RF zolpidem [Ambien] 5 mg tablet 5 mg PO BEDTIME PRN (Reason: Sleep) Qty: 20 0RF Rx Instructions: prn sleep difficulty due to travel famotidine 20 mg tablet 20 mg PO DAILY ibuprofen 400 mg tablet 400 mg PO DAILY PRN (Reason: Pain) Referrals: Bentley Monge MD [Physician] - Roge Jacob MD [Primary Care Provider] - Stand Alone Forms: Patient Portal/API
[2023-01-25 18:37] VITALS: BP 124/65; PULSE 53; RESP 16; O2SAT 95
[2023-01-25 19:18] VITALS: BP 111/72; PULSE 76; RESP 18; O2SAT 96
== END 2023-01-25 19:23 | disposition home or self-care (01) ==
PROVIDERS: Emergency Provider Emergency Medicine; Family Provider Family Medicine; PCP Family Medicine; Referring Provider Surgery
DX: Z79.899 Other long term (current) drug therapy (principal); Z79.01 Long term (current) use of anticoagulants; R19.09 Other intra-abdominal and pelvic swelling, mass and lump; K40.90 Unilateral inguinal hernia, without obstruction or gangrene, not specified as recurrent
CPT/HCPCS: 76705; 99214; 99281; 99283

== ENCOUNTER 2023-02-02 09:57 | Day surgery (SDC) | payer MEDICARE, OTHER, SELFPAY ==
[2023-01-29 15:30] VITALS: BMI 26.1
[2023-02-02] VITALS (10 sets, daily range): BP systolic 100–120; BP diastolic 59–79; PULSE 54–61; RESP 12–25; TEMP 35.6–36.4; O2SAT 93–98; BMI 26.1
[2023-02-02] MEDS: LACTATED RINGERS 1,000 ML 100 ML IV (10:26)
--- NOTE | 2023-02-02 10:47 | PM.PREOP ---
Pre-operative Note Interval Note History & Physical reviewed/Exam performed by Physician: Yes Changes to H&P: No
[2023-02-02] MEDS: CEFAZOLIN 2 GM/100 ML PREMIX 100 ML IV (10:52)
--- NOTE | 2023-02-02 11:11 | SUR.OPER ---
Supine on padded OR bed, head on pillow, arms padded and tucked at sides, legs uncrossed, safety belt at thigh, tape over blanket over lower legs .
[2023-02-02] MEDS: BUPIVACAINE 0.25% (PF) VIAL 30 ML INJ (11:50)
--- NOTE | 2023-02-02 12:16 | P.OP_ITS ---
Operative Date/Time/Diagnoses Date of procedure: 02/02/23 Time of procedure: 12:16 Pre-op diagnosis: Recurrent right inguinal hernia. Umbilical hernia Post-op diagnosis: same Procedure & Clinicians Procedure: Laparoscopic repair of recurrent right inguinal hernia. Open repair of umbilical hernia. Same procedure as scheduled: Yes Indications: 78-year-old man with a symptomatic bowel containing right inguinal hernia and a umbilical hernia Surgeon: Bentley Monge Click Yes if Unassisted: Yes Anesthesia Type: General Operative Notes Findings: Recurrent right indirect hernia containing bowel Specimen(s): none sent Estimated Blood Loss (mL): 20 Procedure in detail: The patient was brought to the operating room and placed supine on the table. Bilateral sequential compression devices were applied. General anesthesia was induced and they were intubated with an endotracheal tube. A hull cath was placed in sterile fashion. They received Ancef prior to skin incision. They were prepped and draped in sterile fashion. A time out was performed to ensure the correct patient, procedure and necessary equipment within the operating room. The skin was infiltrated with 0.25% bupivicaine. A 1 cm supra umbilical midline incision was made. The fascia was sharply incised and the abdomen entered traum atically. A 10mm balloon port was placed and pneumoperitoneum was established at 15mm Hg. Inspection of the abdomen demonstrated no evidence of injury upon entry. Two 5 mm ports were then placed under direct visualization in the right and left lower quadrant lateral to the rectus muscle. A right indirect bowel containing hernia was observed. No left inguinal hernia. The small bowel was mobilized out of the inguinal hernia. The peritoneum 4 cm superior to the deep inguinal ring between the medial umbilical ligament and the anterior superior iliac spine was incised. The medial preperitoneal dissection was carried out into the space of Retzius bluntly, the bladder was swept inferiorly, the pubis and Lizandro's ligament were identified. Next attention was turned towards the lateral aspect of the peritoneal flap. The preperitoneal fat with the testicular vessels was carefully dissected off the inferior peritoneal flap. The cord was examined and there was a indirect hernia sac which was skeltonized off the cord preserving the testicular vessels and the vas deferns. A large Bard 3D Max mesh was then placed into the abdomen and positioned such that the myopectineal orifice was completely covered with good overlap on all sides. The peritoneal flap was then repositioned back to its original position and a running V lock suture was used to close the peritoneum such that no bowel could herniate into the preperitoneal space. The area was examined for hemostasis. The 5mm trocars were removed under direct visualization and pneumoperitoneum was deflated through the umbilical trocar, The fascia at the umbilicus was closed with 0-Vicryl in figure of 8 fashion, skin closed with 4-0 Monocyl followed by Dermabond. The sponge and instrument count at the end of the case was correct. Both testicles were entirely within the scrotum at the end of the case. The patient emerged from anesthsia was extubated and transferred to recovery in stable condition. Complications: none Post-operative Disposition: same day surgery
--- NOTE | 2023-02-02 12:33 | SUR.OPER ---
Blood in hull catheter and blood out of penis following insertion and removal of hull catheter. aware.
[2023-02-02] MEDS: TRAMADOL 50 MG TABLET PO (12:52)
[2023-02-02] MEDS: ACETAMINOPHEN 325 MG TABLET 975 MG PO (13:51)
== END 2023-02-02 13:55 | disposition home or self-care (01) ==
PROVIDERS: Family Provider Family Medicine; PCP Family Medicine; Referring Provider Surgery; Visit Provider Surgery
PROC: 0YQ54ZZ Repair Right Inguinal Region, Percutaneous Endoscopic Approach (ICD-10-PCS; CPT 49651; principal; 2023-02-02 11:15)
PROC: (CPT 49651; 2023-02-02 11:15)
DX: K40.31 Unilateral inguinal hernia, with obstruction, without gangrene, recurrent (principal); K42.9 Umbilical hernia without obstruction or gangrene
CPT/HCPCS: 49651; 82962; J0690; J1885; J2405; J2704

== ENCOUNTER 2023-03-18 11:48 | Emergency (ER) | payer MEDICARE, OTHER, SELFPAY ==
[2023-03-18 11:59] VITALS: BP 135/71; PULSE 66; RESP 18; TEMP 36.4; O2SAT 98; BMI 24.4
--- NOTE | 2023-03-18 12:05 | DI.RAD.S_ITS ---
PROCEDURE: XR RIBS RT MIN 3V W CXR 1V INDICATIONS: fall, pain TECHNIQUE: 2 views of the right ribs were acquired, along with a single view chest. COMPARISON: None. FINDINGS: Surgical changes and devices: Left atrial appendage device. Sternotomy wires. Right humeral surgical anchor. Left humeral fixation hardware. Bones and chest wall: No displaced fracture. No dislocations identified. Lungs and pleura: Mild bibasilar opacities are present. No pleural effusions. Mediastinum: Normal heart size. IMPRESSION: No acute radiographic abnormality. If there is high concern for occult injury, consider repeat radiography or cross-sectional imaging. Mild bibasilar pulmonary opacities may represent atelectasis or aspiration. Consider future imaging surveillance to assess for resolution. Dictated by: Joe Hooper M.D. on 03/18/2023 at 12:26 Approved by: Joe Hooper M.D. on 03/18/2023 at 12:27
--- NOTE | 2023-03-18 12:41 | ED.BACK ---
HPI - Back Pain/Injury General Chief Complaint: Back Pain/Injury Stated Complaint: fell/back pain Time Seen by Provider: 03/18/23 12:05 Source: patient and family History of Present Illness HPI Narrative: 78-year-old gentleman anticoagulated with CBD, history of hyperlipidemia hypertension who was recently visiting [place] in [place]. Sounds like they had a delightful visits however in the day prior to coming home he fell backward landing on his lower posterior right ribs. They live in [facility], he was continuing to have pain over the last 48-72 hours and comes in for further evaluation. He does not report fevers, cough, chills. He is not short of breath. At home he is used some Tylenol and tramadol and found that is controlling the pain. He is simply looking to make sure that nothing is broken, he does not have a pneumothorax and there is no blood collecting in his lung. Related Data Home Medications Medication Instructions Recorded Confirmed famotidine 20 mg tablet 20 mg PO DAILY 11/16/20 02/08/23 ibuprofen 400 mg tablet 400 mg PO DAILY PRN Pain 11/16/20 02/08/23 metoprolol succinate 25 mg 25 mg PO BEDTIME 02/10/22 02/08/23 tablet,extended release 24 hr apixaban 5 mg tablet (Eliquis) 5 mg PO BID Heart Arthymia 06/01/22 02/08/23 dronedarone 400 mg tablet (Multaq) 400 mg PO BID Heart Arthymia 06/01/22 02/08/23 sildenafil (pulm.hypertension) 20 20 mg PO DAILY PRN Sexual Activity 09/27/22 02/08/23 mg tablet aspirin 81 mg capsule 81 mg PO DAILY 01/29/23 02/08/23 tamsulosin 0.4 mg capsule 0.4 mg PO DAILY 01/29/23 02/08/23 atorvastatin 40 mg tablet 40 mg PO DAILY 02/02/23 02/08/23 Previous Rx's Medication Instructions Recorded finasteride 5 mg tablet 5 mg PO DAILY #90 tabs 05/26/22 atorvastatin 40 mg tablet (Lipitor) 40 mg PO HS #90 tabs 06/21/22 ezetimibe 10 mg tablet (Zetia) 10 mg PO DAILY #90 tabs 08/24/22 gabapentin 100 mg capsule 100 mg PO TID #60 caps 01/18/23 zolpidem 5 mg tablet (Ambien) 5 mg PO BEDTIME PRN Sleep #20 tabs 01/23/23 Allergies Allergy/AdvReac Type Severity Reaction Status Date / Time codeine [CODEINE] AdvReac Severe Hallucinati Verified 02/08/23 15:54 ng oxycodone [From OxyContin] AdvReac Severe Hallucinati Verified 02/08/23 15:54 ng loratadine [LORATADINE] AdvReac Mild Back Pain Verified 02/08/23 15:54 Review of Systems Review of Systems Narrative: Pertinent positive and negative findings as per HPI Patient History Medical History Transient disorder of initiating or maintaining sleep History of cardioversion Presence of cardiac device (~12/01/20) BPH (benign prostatic hyperplasia) GERD (gastroesophageal reflux disease) CLL (chronic lymphocytic leukemia) (2018) Tinnitus (~2015) Recurrent sinusitis Hearing loss (~2017) Blindness (~2014) Colon polyps (~2019) Screening for prostate cancer Postoperative atrial fibrillation Erectile dysfunction due to arterial disease Elevated PSA Hernia Surgical History Hx of hand surgery Hx of sinus surgery (2021) Hx of repair of left rotator cuff (2014) Anesthesia Broken humerus (~2004) History of hernia repair (~1987) History of arthroscopy of knee (~1983) H/O mitral valve replacement (2014) H/O circumcision Hx of CABG (2014) Family History Father BPH (benign prostatic hyperplasia) Diabetes mellitus Hearing impairment History of heart disease Mother Cancer Coronary artery disease Hyperlipidemia Inflammatory bowel disease Thyroid disease Sister Mental health problem Grandfather History of heart disease Grandmother Cancer Grandfather Mental health problem Family/Other Cancer Social History marital status: number of children: 2 household members: spouse occupational status: employed Smoking Status: Never smoker alcohol intake: current caffeine: Yes (coffee) Type(s) of exercise: additional frequency: 3-4 times per week Smoking Status: Never smoker alcohol intake frequency: 0-2 drinks per day Substance Use Type: does not use Exam Initial Vital Signs Initial Vital Signs: Vital Signs Temperature 97.5 F L 03/18/23 11:59 Pulse Rate 66 03/18/23 11:59 Respiratory Rate 18 03/18/23 11:59 Blood Pressure 135/71 03/18/23 11:59 Pulse Oximetry 98 03/18/23 11:59 Oxygen Delivery Method Room Air 03/18/23 11:59 General: Healthy appearing, in no acute distress. Able to give a complete and coherent history. Well-nourished well-developed HEENT: Moist mucous membranes, normal sclera with reactive pupils, Neck: No JVD, supple Respiratory: Lungs are clear to auscultation, no wheezing no rales no rhonchi. Full and symmetrical air movement Chest: He is some mild tenderness posterior lower right ribs with some minimal bruising appreciated. There is no subcutaneous air. Cardiac: Regular rate and rhythm no murmurs no bruits Skin: Warm and dry, no rashes Neurologic: Grossly neurologically intact with no obvious asymmetries or abnormalities Extremities: No trauma, well perfused Psych: Cooperative, appropriate insight and affect Course Orders Ordered: ED Orders 03/18/23 12:05 XR ribs RT min 3V w CXR1V Stat Vital Signs Vital signs: Vital Signs - 8 hr 03/18/23 11:59 Temperature 97.5 F L Pulse Rate 66 Respiratory Rate 18 Blood Pressure 135/71 Pulse Oximetry 98 Oxygen Delivery Method Room Air MDM - Back Pain/Injury MDM Narrative Medical decision making narrative: CC: Fall with right posterior rib pain Complicating co-morbidities: Anticoagulated Data collected from: patient, Social determinants of health that may influence the patients condition: Lives on [facility] Medical records reviewed: Notes looking back through primary care notes discussing his atrial flutter, diabetes, urology notes with PSA changes and recent inguinal hernia repair are all reviewed Differential considered: Rib fracture, pneumothorax, hemothorax Exam documented above, pertinent findings include: Minor tenderness in minor contusion over the area of concern. Symmetrical breath sounds. He is able to fairly easily stand without additional support and can move and twist to demonstrate the area of his pain without significant difficulty. Imaging studies independently reviewed: Chest/rib studies do not show any fractures or pneumothorax Discussion: 78-year-old gentleman with a fall 2-3 days ago right rib pain. No evidence of fractures. Pain has been controlled adequately with tramadol that he has left over after his recent inguinal hernia surgery he is given instructions on use of an incentive spirometer to try and avoid complications of splinting and atelectasis from the pain. Findings from chest x-ray reviewed with him. Questions are answered he is safe for discharge Discharge Plan Departure Patient Disposition: Home Clinical Impression: Rib contusion Qualifiers: Encounter type: initial encounter Laterality: right Qualified Code(s): S20.211A - Contusion of right front wall of thorax, initial encounter Instructions: DI for Rib Contusion Activity Restrictions/Additional Instructions: Thank you for coming in today. Your x-ray does not show a rib fracture, collapsed lung or any blood collecting around her lung. This is going to improve with time. Using Tylenol and the tramadol that you stated you have at home can be helpful in controlling the pain. It is important to intermittently throughout the day use the incentive spirometer. One of the complications we worry about with rib contusions or rib fractures is not inflating the lung adequately due to pain and then putting herself at significant risk for developing a pneumonia. If you find that you are getting worse or develop any new symptoms, please feel free to return to the emergency department for further evaluation. Prescriptions: No Action finasteride 5 mg tablet 5 mg PO DAILY Qty: 90 3RF atorvastatin [Lipitor] 40 mg tablet 40 mg PO HS Qty: 90 3RF sildenafil (pulm.hypertension) 20 mg tablet 20 mg PO DAILY PRN (Reason: Sexual Activity) Rx Instructions: Take 1-3 tablets by mouth daily as needed and as directed. tamsulosin 0.4 mg capsule 0.4 mg PO DAILY aspirin 81 mg Capsule 81 mg PO DAILY atorvastatin 40 mg tablet 40 mg PO DAILY gabapentin 100 mg capsule 100 mg PO TID Qty: 60 0RF metoprolol succinate 25 mg tablet extended release 24 hr 25 mg PO BEDTIME Multaq 400 mg tablet 400 mg PO BID Eliquis 5 mg tablet 5 mg PO BID ezetimibe [Zetia] 10 mg tablet 10 mg PO DAILY Qty: 90 3RF zolpidem [Ambien] 5 mg tablet 5 mg PO BEDTIME PRN (Reason: Sleep) Qty: 20 0RF Rx Instructions: prn sleep difficulty due to travel famotidine 20 mg tablet 20 mg PO DAILY ibuprofen 400 mg tablet 400 mg PO DAILY PRN (Reason: Pain) Referrals: Roge Jacob MD [Primary Care Provider] - Stand Alone Forms: Patient Portal/API
--- NOTE | 2023-03-18 12:58 | PC.NURSE ---
Patient reports falling on stairs while on a trip; takes eliquis. He has mid-back right side pain and wanted to be assessed prior to returning to [facility]. Denies urinary or GI issues.
== END 2023-03-18 13:00 | disposition home or self-care (01) ==
PROVIDERS: Emergency Provider Emergency Medicine; Family Provider Family Medicine; PCP Family Medicine
DX: S20.211A Contusion of right front wall of thorax, initial encounter (principal); W18.30XA Fall on same level, unspecified, initial encounter
CPT/HCPCS: 71101; 99281; 99283

== ENCOUNTER → 2023-06-14 10:05 | Outpatient (CLI) | payer MEDICARE, OTHER, SELFPAY ==
[2023-06-14 19:31] LABS: Add Manual Diff / Slide Review NO; Basophils Absolute Auto 0 /uL (0-100); Basophils Percent Auto 0.3 % (0-2); Eosinophils Absolute Auto 300 /uL (0-450); Eosinophils Percent Auto 1.6 % (2-4); Hematocrit 42.7 % (41-53); Hemoglobin 14.2 g/dL (13.5-17.5); Lymphocytes Absolute Auto 9400 /uL (1100-4500); Lymphocytes Percent Auto 58.2 % (25-40); Mean Corpuscular HGB Conc 33.3 % (30-36); Mean Corpuscular Volume 89.9 fL (80-100); Monocytes Absolute Auto 900 /uL (0-900); Monocytes Percent Auto 5.4 % (3-14); Neutrophils Absolute Auto 5500 /uL (1500-7000); Neutrophils Percent Auto 34.5 % (50-75); Platelet Count 170 X10^3/uL (150-400); Red Blood Cell Count 4.75 X10^6/uL (4.5-5.9); Red Cell Distribution Width 12.7 % (11.6-14.8)
[2023-06-14 19:44] LABS: BUN Creatinine Ratio 12.5 (6-22); Blood Urea Nitrogen 13 mg/dL (9-20); Carbon Dioxide 26 mmol/L (22-32); Chloride 106 mmol/L (98-107); Cholesterol 101 mg/dL (140-199); Estimated Glomerular Filt Rate > 60 mL/min (>60); Glucose 108 mg/dL (80-110); HDL Cholesterol 34 mg/dL (40-60); HEMOLYSIS < 15 (0-50); LDL Cholesterol Calculated 54 mg/dL (<100); Potassium 4.6 mmol/L (3.4-5.1); Sodium 140 mmol/L (137-145); Triglycerides 63 mg/dL (35-150)
[2023-06-14 20:00] LABS: Prostate Specific Antigen 2.72 ng/mL (0.10-4.00)
[2023-06-14 20:01] LABS: TSH w/ Reflex to FT4 2.82 uIU/mL (0.47-4.68)
[2023-06-14 20:09] LABS: Creatinine Urine Random 77.7 mg/dL
[2023-06-14 20:14] LABS: Microalbumin Urine Random < 0.6 mg/dL (0-1.6)
== END ==
PROVIDERS: Specialist; Family Provider Family Medicine; PCP Family Medicine; Visit Provider Family Medicine
DX: E78.2 Mixed hyperlipidemia (principal); I25.10 Atherosclerotic heart disease of native coronary artery without angina pectoris; R97.20 Elevated prostate specific antigen [PSA]; R80.9 Proteinuria, unspecified; G45.3 Amaurosis fugax; I48.92 Unspecified atrial flutter; Z79.01 Long term (current) use of anticoagulants
CPT/HCPCS: 80048; 80061; 82043; 82570; 84153; 84443; 85025

== ENCOUNTER → 2023-11-01 15:23 | Outpatient (CLI) | payer MEDICARE, OTHER, SELFPAY ==
--- NOTE | 2023-11-01 15:24 | DI.CT.S_ITS ---
PROCEDURE: CT FACIAL BONES WO CON INDICATIONS: Chronic rhinosinusitis pansinusitis TECHNIQUE: STEALTH protocol performed, without contrast 2 mm thick axial images acquired from the mandible through the frontal sinuses, with coronal and sagittal reformatting. For radiation dose reduction, the following was used: automated exposure control, adjustment of mA and/or kV according to patient size. COMPARISON: None. FINDINGS: Image quality: There is artifact associated with the metallic hardware. Artifact from the metallic hardware is reduced by metal reconstruction algorithm. Bones and teeth: Orbital meredith are intact. Sinus meredith show no fracture or deformity. Nasal bones and septum are intact. Visualized portions of the mandible demonstrate no fractures or subluxation. Zygomatic arches are intact. Pterygoid plates are intact. Visualized portions of the skull base and auditory canals are intact. There is partial visualization of cervical spine degenerative change. Sinuses: There is moderate mucosal thickening within the inferior maxillary sinuses, right worse than left. On the right, there is also a mucous retention cyst. The superior medial meredith of the maxillary sinuses have been removed. There is mild mucosal thickening within the ethmoid air cells. Several of the bony septations within the ethmoid air cells have been removed. There is minimal mucosal thickening within the anterior sphenoid sinuses. Mild mucosal thickening can be seen within the inferior medial frontal sinuses. The ostiomeatal complexes have been removed. No amy bullosa can be seen. There is minimal leftward nasal septal deviation. No abnormal fluid is seen within the mastoid air cells. Soft tissues: No edema, masses, or fluid collections. No enlarged lymph nodes. No soft tissue lacerations or debris. Vascular: Visualized vascular structures appear normal in the absence of contrast. Bony vascular foramina and canals are intact. IMPRESSION: Multifocal paranasal sinus disease can be seen, which is worst within the maxillary sinuses, right worse than left. Prior postoperative change, with bilateral antrectomy. Dictated by: Guy Ayala M.D. on 11/02/2023 at 9:56 Approved by: Guy Ayala M.D. on 11/02/2023 at 9:59
== END ==
PROVIDERS: Family Provider Family Medicine; PCP Family Medicine
DX: J32.4 Chronic pansinusitis (principal)
CPT/HCPCS: 70486

== ENCOUNTER → 2023-12-26 11:50 | Outpatient (CLI) | payer MEDICARE, OTHER, SELFPAY ==
[2023-12-26 20:32] LABS: Prostate Specific Antigen 2.79 ng/mL (0.10-4.00)
== END ==
PROVIDERS: Family Provider Family Medicine; PCP Family Medicine; Visit Provider Urology
DX: N40.1 Benign prostatic hyperplasia with lower urinary tract symptoms (principal); R35.1 Nocturia; N13.8 Other obstructive and reflux uropathy
CPT/HCPCS: 84153

== ENCOUNTER → 2024-07-03 10:24 | Outpatient (CLI) | payer MEDICARE, OTHER, SELFPAY ==
[2024-07-03 19:23] LABS: Add Manual Diff / Slide Review YES; Hematocrit 41.6 % (41-53); Hemoglobin 13.7 g/dL (13.5-17.5); Mean Corpuscular HGB Conc 32.8 % (30-36); Mean Corpuscular Hemoglobin 29.5 PG (26-34); Mean Corpuscular Volume 89.9 fL (80-100); Platelet Count 192 X10^3/uL (150-400); Red Blood Cell Count 4.62 X10^6/uL (4.5-5.9); Red Cell Distribution Width 12.6 % (11.6-14.8); White Blood Cell Count 15.8 X10^3/uL (4.5-11.0)
[2024-07-03 19:29] LABS: Alanine Aminotransferase 29 IU/L (<50); Albumin 4.1 g/dL (3.5-5.0); Albumin Globulin Ratio 1.4 (1.0-2.8); Alkaline Phosphatase 86 U/L (38-126); Aspartate Aminotransferase 30 IU/L (17-59); BUN Creatinine Ratio 19.8 (6-22); Bilirubin Total 0.7 mg/dL (0.2-1.3); Blood Urea Nitrogen 19 mg/dL (9-20); Carbon Dioxide 24 mmol/L (22-32); Chloride 105 mmol/L (98-107); Cholesterol 127 mg/dL (140-199); Estimated Glomerular Filt Rate > 60 mL/min (>60); Globulin 2.9 g/dL (1.7-4.1); Glucose 115 mg/dL (80-110); HDL Cholesterol 38 mg/dL (40-60); HEMOLYSIS < 15 (0-50); LDL Cholesterol Calculated 64 mg/dL (<100); Potassium 4.3 mmol/L (3.4-5.1); Sodium 137 mmol/L (137-145); Triglycerides 125 mg/dL (35-150)
[2024-07-03 19:58] LABS: Prostate Specific Antigen Scrn 3.01 ng/mL (0.1-4.0)
[2024-07-03 20:05] LABS: Neutrophils Absolute Manual 5372 /uL (3000-5900); RBC Morphology Normal Morphology; Total Cells Counted 100
== END ==
PROVIDERS: PCP Family Medicine; Visit Provider Family Medicine
DX: I48.92 Unspecified atrial flutter (principal); I25.10 Atherosclerotic heart disease of native coronary artery without angina pectoris; Z12.5 Encounter for screening for malignant neoplasm of prostate; N40.1 Benign prostatic hyperplasia with lower urinary tract symptoms; R35.1 Nocturia; Z79.01 Long term (current) use of anticoagulants; C91.10 Chronic lymphocytic leukemia of B-cell type not having achieved remission; R97.20 Elevated prostate specific antigen [PSA]; Z95.1 Presence of aortocoronary bypass graft; E78.2 Mixed hyperlipidemia; Z79.899 Other long term (current) drug therapy
CPT/HCPCS: 80053; 80061; 85007; 85025; G0103

== ENCOUNTER → 2024-10-07 08:56 | Outpatient (CLI) | payer MEDICARE, OTHER, SELFPAY ==
--- NOTE | 2024-10-07 09:00 | DI.MRI.S_ITS ---
PROCEDURE: MR HEAD/BRAIN WO/W CON INDICATIONS: ataxia speech slurring TECHNIQUE: Noncontrast axial T1 spin echo, axial T2 fast spin echo, sagittal and axial FLAIR, coronal T2 fast spin echo, axial gradient echo, axial diffusion and ADC through the brain. After the administration of contrast, axial and coronal and sagittal 3D VIBE or T1 spin echo with fat saturation through the brain. COMPARISON: None. FINDINGS: CSF Spaces: Basal cisterns are patent. No extra-axial fluid collections. Ventricles are normal in size and shape. Brain: Small poorly enhancing extra-axial mass lesion associated with the right planum sphenoidale measures 1.0 by 1.2 x 0.4 cm with minimal mass effect on the right gyrus rectus. Otherwise, moderate atrophy and white matter chronic ischemic change No intracranial masses or hemorrhage. [place]/white matter interface is normal. Brainstem appears normal. Diffusion-weighted sequence is unremarkable without evidence of acute infarct. Normal intravascular flow voids are present. Skull and face: Calvarial marrow is normal in signal. Orbits appear normal. Bilateral intraocular lens replacements noted. Sinuses: 1.8 cm right maxillary sinus retention cyst. Bilateral mucosal thickening measures up to 6 mm. No remodeling IMPRESSION: Small right planum meningioma. Moderate atrophy and white matter chronic ischemic change without acute infarct, or hemorrhage. Approved by: Roberth Astudillo M.D. on 10/07/2024 at 10:32
== END ==
LOC: MRI 08:57
PROVIDERS: PCP Family Medicine; Referring Provider Family Medicine; Visit Provider Family Medicine
DX: D32.0 Benign neoplasm of cerebral meninges (principal); G45.3 Amaurosis fugax; J34.1 Cyst and mucocele of nose and nasal sinus; R27.0 Ataxia, unspecified; Z95.3 Presence of xenogenic heart valve
CPT/HCPCS: 70553; A9579

== ENCOUNTER 2024-11-03 13:26 | Observation (INO) | payer MEDICARE, OTHER, SELFPAY ==
[2024-11-03] VITALS (7 sets, daily range): BP systolic 128–148; BP diastolic 66–89; PULSE 52–97; RESP 12–17; TEMP 36.2–36.6; O2SAT 97–99; BMI 23.7
[2024-11-03 14:39] LABS: Add Manual Diff / Slide Review NO; Hematocrit 34.3 % (41-53); Hemoglobin 11.8 g/dL (13.5-17.5); Lymphocytes Absolute Auto 9000 /uL (1100-4500); Mean Corpuscular HGB Conc 34.3 % (30-36); Mean Corpuscular Hemoglobin 30.4 PG (26-34); Mean Corpuscular Volume 88.7 fL (80-100); Platelet Count 165 X10^3/uL (150-400)
[2024-11-03 14:43] LABS: INR 1.3 (0.9-1.3); Prothrombin Time 14.9 SECONDS (9.4-12.5)
[2024-11-03 14:46] LABS: PTT Partial Thromboplastin Tim 29 SECONDS (25.1-36.5)
[2024-11-03 14:48] LABS: Alanine Aminotransferase 17 IU/L (<50); Albumin 4.0 g/dL (3.5-5.0); Albumin Globulin Ratio 1.6 (1.0-2.8); Alkaline Phosphatase 74 U/L (38-126); Blood Urea Nitrogen 23 mg/dL (9-20); Calcium 8.6 mg/dL (8.4-10.2); Carbon Dioxide 20 mmol/L (22-32); Chloride 109 mmol/L (98-107); Estimated Glomerular Filt Rate > 60 mL/min (>60); Globulin 2.5 g/dL (1.7-4.1); Glucose 186 mg/dL (70-99); HEMOLYSIS < 15 (0-50); Potassium 4.4 mmol/L (3.4-5.1); Sodium 135 mmol/L (137-145); Total Protein 6.5 g/dL (6.3-8.2)
--- NOTE | 2024-11-03 18:02 | ED.GIBLEED ---
HPI - GI Bleed General Chief complaint: GI Bleed Stated complaint: Blood in stools x 3 days Time Seen by Provider: 11/03/24 18:00 Source: patient Mode of arrival: Ambulatory History of Present Illness HPI Narrative: 79-year-old gentleman history atrial fibrillation on Eliquis, mitral valve replacement, CLL, CAD s/p CABG x2, dyslipidemia, BPH for which he also takes 2 pills of ibuprofen daily for general body aches tense with 2 days of bloody diarrhea and abdominal cramping today. Patient denies chest pain, sob, lightheaded, dizziness, fever chills body aches back pain or any history of kidney stones or urinary complaints at this time. Other than what is stated 14 point review of system is negative. Related Data Home Medications ?Medication ?Instructions ?Recorded ?Confirmed ibuprofen 400 mg tablet 400 mg PO DAILY PRN Pain 11/16/20 10/09/24 metoprolol succinate 25 mg 25 mg PO BEDTIME 02/10/22 10/09/24 tablet,extended release 24 hr apixaban 5 mg tablet (Eliquis) 5 mg PO BID Heart Arthymia 06/01/22 10/09/24 aspirin 81 mg capsule 81 mg PO DAILY 01/29/23 10/09/24 budesonide 0.5 mg/2 mL suspension 0.25 mg inhalation BID 04/30/24 10/09/24 for nebulization tadalafil 5 mg tablet 5 mg PO DAILY 10/02/24 10/09/24 Previous Rx's ?Medication ?Instructions ?Recorded zolpidem 5 mg tablet (Ambien) 5 mg PO BEDTIME PRN Sleep #20 tabs 04/30/24 finasteride 5 mg tablet 5 mg PO DAILY #90 tabs 05/14/24 atorvastatin 40 mg tablet 40 mg PO ONCE PM #90 tabs 06/18/24 ezetimibe 10 mg tablet 10 mg PO DAILY #90 tabs 07/10/24 Allergies Allergy/AdvReac Type Severity Reaction Status Date / Time codeine (CODEINE) AdvReac Severe Hallucinati Verified 11/03/24 14:11 ng oxycodone (From OxyContin) AdvReac Severe Hallucinati Verified 11/03/24 14:11 ng loratadine (LORATADINE) AdvReac Mild Back Pain Verified 11/03/24 14:11 Review of Systems Review of Systems ROS Unobtainable: All systems reviewed & are unremarkable except as noted in HPI and below Patient History Medical History BPH w urinary obs/LUTS History of cardioversion Presence of cardiac device (~12/01/20) BPH (benign prostatic hyperplasia) GERD (gastroesophageal reflux disease) CLL (chronic lymphocytic leukemia) (2018) Tinnitus (~2015) Recurrent sinusitis Hearing loss (~2017) Blindness (~2014) Colon polyps (~2019) Screening for prostate cancer Postoperative atrial fibrillation Erectile dysfunction due to arterial disease Elevated PSA Hernia Surgical History Hx of hand surgery Hx of sinus surgery (2021) Hx of repair of left rotator cuff (2014) Anesthesia Broken humerus (~2004) History of hernia repair (~1987) History of arthroscopy of knee (~1983) H/O mitral valve replacement (2014) H/O circumcision Hx of CABG (2014) Family History Father BPH (benign prostatic hyperplasia) Diabetes mellitus Hearing impairment History of heart disease Mother Cancer Coronary artery disease Hyperlipidemia Inflammatory bowel disease Thyroid disease Sister Mental health problem Grandfather History of heart disease Grandmother Cancer Grandfather Mental health problem Family/Other Cancer Social History marital status: number of children: 2 household members: spouse occupational status: employed Smoking Status: Never smoker alcohol intake: current caffeine: Yes (coffee) Type(s) of exercise: additional frequency: 3-4 times per week Smoking Status: Never smoker alcohol intake frequency: 0-2 drinks per day Exam Narrative Exam Narrative: GENERAL: [79] year old patient appears stated age. Well-developed patient, in mild distress. HEAD: Atraumatic. Normocephalic. EYES: Pupils equal round and reactive. Extraocular motions intact. No scleral icterus. No injection or drainage. ENT: Nose without bleeding, purulent drainage. Throat without erythema, tonsillar hypertrophy or exudate. Airway patent. NECK: Trachea midline. Non tender CARDIOVASCULAR: Regular rate and rhythm without murmurs, gallops, or rubs. RESPIRATORY: Clear to auscultation. Breath sounds equal bilaterally. No wheezes, rales, or rhonchi. GASTROINTESTINAL: Abdomen soft, non-tender, nondistended. Rectal: No fissure or hemorrhoids seen, + guiac EXTREMITIES: No edema or joint tenderness. BACK: Nontender without deformity or crepitance. No flank tenderness. NEURO: AOx3. SKIN: No rash or erythema of visible areas Initial Vital Signs Initial Vital Signs: Vital Signs Temperature 97.1 F L 11/03/24 14:11 Pulse Rate 89 11/03/24 14:11 Respiratory Rate 17 11/03/24 14:11 Blood Pressure 128/66 11/03/24 14:11 Pulse Oximetry 97 11/03/24 14:11 Oxygen Delivery Method Room Air 11/03/24 14:11 Course Orders Ordered: ED Orders 11/03/24 14:26 Complete Blood Count AUTO DIFF Stat Comprehensive Metabolic Panel Stat PTT Partial Thromboplastin [place] Stat Prothrombin Time INR Stat Type and Screen Stat 11/03/24 18:24 CT angio Abd/Pel GI Bleed Stat Ondansetron HCl (Ondansetron 4 Mg/2 Ml Inj) 4 mg IV NOW PRN PRN Reason: Nausea And Vomiting Ondansetron HCl (Ondansetron 4 Mg Odt) 4 mg PO NOW PRN PRN Reason: Nausea And Vomiting Ondansetron HCl (Ondansetron 4 Mg/2 Ml Inj) 4 mg IV NOW PRN PRN Reason: Nausea And Vomiting Ondansetron HCl (Ondansetron 4 Mg Odt) 4 mg PO NOW PRN PRN Reason: Nausea And Vomiting Discontinued Medications Lactated Ringer's (Lactated Ringers) 1,000 mls @ 1,000 mls/hr IV BOLUS ONE Stop: 11/03/24 19:23 Last Admin: 11/03/24 18:55 Dose: 1,000 mls/hr Documented By: MPO Vital Signs Vital signs: Vital Signs - 8 hr 11/03/24 14:11 Temperature 97.1 F L Pulse Rate 89 Respiratory Rate 17 Blood Pressure 128/66 Pulse Oximetry 97 Oxygen Delivery Method Room Air MDM - GI Bleed Lab Data 11/03/24 14:26 11/03/24 14:26 Labs: Lab Results 11/03/24 Range/Units 14: WBC 17.8 H (4.5-11.0) X10^3/uL RBC 3.87 L (4.5-5.9) X10^6/uL Hgb 11.8 L (13.5-17.5) g/dL Hct 34.3 L (41-53) % MCV 88.7 (80-100) fL MCH 30.4 (26-34) PG MCHC 34.3 (30-36) % RDW 14.7 (11.6-14.8) % Plt Count 165 (150-400) X10^3/uL Neut % (Auto) 44.0 L (50-75) % Lymph % (Auto) 50.4 H (25-40) % [place] % (Auto) 4.6 (3-14) % Eos % (Auto) 0.6 L (2-4) % Baso % (Auto) 0.4 (0-2) % Neut # (Auto) 7800 H (7610-4366) /uL Lymph # (Auto) 9000 H (2637-8456) /uL [place] # (Auto) 800 (0-900) /uL Eos # (Auto) 100 (0-450) /uL Baso # (Auto) 100 (0-100) /uL PT 14.9 H (9.4-12.5) SECONDS INR 1.3 (0.9-1.3) APTT 29 (25.1-36.5) SECONDS Sodium 135 L (137-145) mmol/L Potassium 4.4 (3.4-5.1) mmol/L Chloride 109 H (98-107) mmol/L Carbon Dioxide 20 L (22-32) mmol/L BUN 23 H (9-20) mg/dL Creatinine 0.99 (0.66-1.25) mg/dL Estimated GFR > 60 (>60) mL/min BUN/Creatinine Ratio 23.2 H (6-22) Glucose 186 H (70-99) mg/dL Calcium 8.6 (8.4-10.2) mg/dL Total Bilirubin 0.7 (0.2-1.3) mg/dL AST 21 (17-59) IU/L ALT 17 (<50) IU/L Alkaline Phosphatase 74 (38-126) U/L Total Protein 6.5 (6.3-8.2) g/dL Albumin 4.0 (3.5-5.0) g/dL Globulin 2.5 (1.7-4.1) g/dL Albumin/Globulin Ratio 1.6 (1.0-2.8) Blood Type B Positive Antibody Screen Negative Urine Dip Bedside Urine Glucose Negative Bedside Urine Bilirubin - Negative Bedside Urine Ketone - Negative Urine Specific [place] 1.015 Bedside Urine Occult Blood - Negative Bedside Urine pH 6.0 Bedside Urine Protein - Negative Bedside Urine Urobilinogen - Negative Bedside Urine Nitrite - Negative Bedside Urine Leukocytes - Negative Esterase Imaging Data CT scan - abdomen/pelvis: Radiologist's Impression: : 1945 Acct:[id number] Age/Sex: 79 / M Date of Service: 11/03/24 Loc: ED Accession Number: [id number] Procedure: CT angio Abd/Pel GI Bleed Ordering Provider: Joao Joe D.O. PROCEDURE: CT ANGIO ABD/PEL GI BLEED INDICATIONS: gi bleed TECHNIQUE: After the administration of intravenous contrast, 2.5 mm thick sections acquired from the diaphragm to the symphysis. 10 mm maximum-intensity projection (MIP) reformats were then acquired. For radiation dose reduction, the following was used: automated exposure control. COMPARISON: None. FINDINGS: Image Quality: Diagnostic. Abdominal aorta: No aortic aneurysm or evidence of acute aortic syndrome. Atherosclerotic calcifications. Mesenteric arteries: Patent without hemodynamically significant stenosis. Renal arteries: Patent without hemodynamically significant stenosis. OTHER: Lower Chest: No significant findings. Small hiatal hernia. Liver: No solid mass. Gallbladder: No radiopaque gallstones or wall thickening. Contracted Biliary ducts: No biliary dilation. Pancreas: No ductal dilation. Spleen: Size is within normal limits. Adrenal Glands: No adrenal nodules. Kidneys and Ureters: No hydronephrosis. No solid mass. No complex renal cystic lesion which requires follow up. Bilateral renal cysts. Stomach and Bowel: Normal colonic caliber, without significant wall thickening. Extensive diverticulosis without evidence of acute inflammation. Peritoneum: No abnormal intraperitoneal fluid. No free air. Ventral Wall: No hernia. Abdominal Nodes: No retroperitoneal or mesenteric adenopathy by size criteria. Vessels: Aorta and inferior vena cava are normal in size. Aorto bi iliac atherosclerotic calcifications. PELVIS: Pelvic Organs: Marked prostatomegaly. Bladder: Unremarkable. Pelvic Nodes: No enlarged lymph nodes. Miscellaneous: No inguinal hernias are seen. Bones: No aggressive osseous abnormality. IMPRESSION: No aortic aneurysm or evidence of acute aortic syndrome. No CT evidence of gastrointestinal bleed as clinically queried. Diverticulosis without CT evidence of acute diverticulitis Heterogeneously enhancing and enlarged prostate. Recommend correlation with PSA. MDM Narrative Medical decision making narrative: Vital signs, nurse triage note, medication list, previous ER visits, and all imaging studies reviewed. CT abdomen and pelvis showed no evidence of acute aortic aneurysm or a acute aortic syndrome. No evidence of gastrointestinal. Bleed as clinically queried diverticulosis without evidence of acute diverticulitis. Heterogeneous enhancing enlarged prostate. Recommend correlation with PSA. Case discussed with Dr. Najera who has graciously accepted the patient for inpatient admission. Patient given 1 L of lactated ringer Discharge Plan Departure Prescriptions: No Action finasteride 5 mg tablet 5 mg PO DAILY Qty: 90 3RF atorvastatin 40 mg tablet 40 mg PO ONCE PM Qty: 90 3RF ezetimibe 10 mg tablet 10 mg PO DAILY Qty: 90 1RF aspirin 81 mg Capsule 81 mg PO DAILY tadalafil 5 mg tablet 5 mg PO DAILY metoprolol succinate 25 mg tablet extended release 24 hr 25 mg PO BEDTIME Eliquis 5 mg tablet 5 mg PO BID budesonide 0.5 mg/2 mL suspension for nebulization 0.25 mg inhalation BID Patient Comments: Patient is using 1.2mg zolpidem [Ambien] 5 mg tablet 5 mg PO BEDTIME PRN (Reason: Sleep) Qty: 20 0RF Rx Instructions: prn sleep difficulty due to travel ibuprofen 400 mg tablet 400 mg PO DAILY PRN (Reason: Pain) Referrals: Roge Jacob MD [Primary Care Provider, Family Practice] Admit Date/Time: 11/03/24 20:27
--- NOTE | 2024-11-03 18:24 | DI.CT.S_ITS ---
PROCEDURE: CT ANGIO ABD/PEL GI BLEED INDICATIONS: gi bleed TECHNIQUE: After the administration of intravenous contrast, 2.5 mm thick sections acquired from the diaphragm to the symphysis. 10 mm maximum-intensity projection (MIP) reformats were then acquired. For radiation dose reduction, the following was used: automated exposure control. COMPARISON: None. FINDINGS: Image Quality: Diagnostic. Abdominal aorta: No aortic aneurysm or evidence of acute aortic syndrome. Atherosclerotic calcifications. Mesenteric arteries: Patent without hemodynamically significant stenosis. Renal arteries: Patent without hemodynamically significant stenosis. OTHER: Lower Chest: No significant findings. Small hiatal hernia. Liver: No solid mass. Gallbladder: No radiopaque gallstones or wall thickening. Contracted Biliary ducts: No biliary dilation. Pancreas: No ductal dilation. Spleen: Size is within normal limits. Adrenal Glands: No adrenal nodules. Kidneys and Ureters: No hydronephrosis. No solid mass. No complex renal cystic lesion which requires follow up. Bilateral renal cysts. Stomach and Bowel: Normal colonic caliber, without significant wall thickening. Extensive diverticulosis without evidence of acute inflammation. Peritoneum: No abnormal intraperitoneal fluid. No free air. Ventral Wall: No hernia. Abdominal Nodes: No retroperitoneal or mesenteric adenopathy by size criteria. Vessels: Aorta and inferior vena cava are normal in size. Aorto bi iliac atherosclerotic calcifications. PELVIS: Pelvic Organs: Marked prostatomegaly. Bladder: Unremarkable. Pelvic Nodes: No enlarged lymph nodes. Miscellaneous: No inguinal hernias are seen. Bones: No aggressive osseous abnormality. IMPRESSION: No aortic aneurysm or evidence of acute aortic syndrome. No CT evidence of gastrointestinal bleed as clinically queried. Diverticulosis without CT evidence of acute diverticulitis Heterogeneously enhancing and enlarged prostate. Recommend correlation with PSA. Approved by: Mary Anne Vega M.D.,Ph.D. on 11/03/2024 at 19:31
[2024-11-03] MEDS: LACTATED RINGERS 1,000 ML 1000 ML IV (18:55)
[2024-11-04] MEDS: SENNOSIDES 8.6 MG TABLET 17.2 MG PO ×2 (00:51→09:02)
--- NOTE | 2024-11-04 02:10 | PM.HP.1 ---
History of Present Illness History of Present Illness Date Patient Seen: 11/04/24 Time Patient Seen: 02:10 Chief complaint: Blood in stools x 3 days Narrative: The pt is a 79 yo with a hx of a-fib, HTN, CLL who presents to the ER tonight due to rectal pain. He states that the rectal bleeding occurs when having a BM, he states that the blood is right colored, It was more intense earlier this morning but has tapered off in the evening. He is currently on Eliquis BID and has been taking ibuprofen on a regular basis BID-TID at home for aches & pains. His last colonoscopy was 2 years and he reports that only a few polyps were found. He has some weakness but this is chronic, PFS Medical History BPH w urinary obs/LUTS History of cardioversion Presence of cardiac device (~12/01/20) BPH (benign prostatic hyperplasia) GERD (gastroesophageal reflux disease) CLL (chronic lymphocytic leukemia) (2018) Tinnitus (~2015) Recurrent sinusitis Hearing loss (~2017) Blindness (~2014) Colon polyps (~2019) Screening for prostate cancer Postoperative atrial fibrillation Erectile dysfunction due to arterial disease Elevated PSA Hernia Surgical History Hx of hand surgery Hx of sinus surgery (2021) Hx of repair of left rotator cuff (2014) Anesthesia Broken humerus (~2004) History of hernia repair (~1987) History of arthroscopy of knee (~1983) H/O mitral valve replacement (2014) H/O circumcision Hx of CABG (2014) Family History Father BPH (benign prostatic hyperplasia) Diabetes mellitus Hearing impairment History of heart disease Mother Cancer Coronary artery disease Hyperlipidemia Inflammatory bowel disease Thyroid disease Sister Mental health problem Grandfather History of heart disease Grandmother Cancer Grandfather Mental health problem Family/Other Cancer Social History marital status: number of children: 2 household members: spouse occupational status: employed Smoking Status: Never smoker alcohol intake: current caffeine: Yes (coffee) Type(s) of exercise: additional frequency: 3-4 times per week Meds Home Medications and Allergies Home Medications ?Medication ?Instructions ?Recorded ?Confirmed ?Type ibuprofen 400 mg tablet 400 mg PO DAILY PRN Pain 11/16/20 11/03/24 History metoprolol succinate 25 mg 25 mg PO BEDTIME 02/10/22 11/03/24 History tablet,extended release 24 hr apixaban 5 mg tablet (Eliquis) 5 mg PO BID Heart Arthymia 06/01/22 11/03/24 History aspirin 81 mg capsule 81 mg PO DAILY 01/29/23 11/03/24 History Held on 11/03/24. Instructions: PA recommended hold while bleeding is an issue budesonide 0.5 mg/2 mL suspension 0.25 mg inhalation BID 04/30/24 11/03/24 History for nebulization zolpidem 5 mg tablet (Ambien) 5 mg PO BEDTIME PRN Sleep #20 tabs 04/30/24 11/03/24 Rx finasteride 5 mg tablet 5 mg PO DAILY #90 tabs 05/14/24 11/03/24 Rx atorvastatin 40 mg tablet 40 mg PO ONCE PM #90 tabs 06/18/24 11/03/24 Rx ezetimibe 10 mg tablet 10 mg PO DAILY #90 tabs 07/10/24 11/03/24 Rx tadalafil 5 mg tablet 5 mg PO DAILY 10/02/24 11/03/24 History famotidine 10 mg tablet 10 mg PO DAILY 11/03/24 11/03/24 History Allergies Allergy/AdvReac Type Severity Reaction Status Date / Time codeine (CODEINE) AdvReac Severe Hallucinati Verified 11/03/24 14:11 ng oxycodone (From OxyContin) AdvReac Severe Hallucinati Verified 11/03/24 14:11 ng loratadine (LORATADINE) AdvReac Mild Back Pain Verified 11/03/24 14:11 Exam Vital Signs (past 8 hours): - 11/03/24 19:10 11/03/24 19:30 11/03/24 19:30 Temperature Pulse Rate 55 L 97 H Respiratory Rate 16 12 Blood Pressure 128/84 Pulse Oximetry 99 97 Oxygen Delivery Method Oxygen Flow Rate 11/03/24 20:00 11/03/24 20:00 11/03/24 22:31 Temperature Pulse Rate 60 Respiratory Rate 13 Blood Pressure 144/77 H Pulse Oximetry 98 98 Oxygen Delivery Method Room Air Oxygen Flow Rate 11/03/24 22:32 11/03/24 22:32 11/03/24 23:20 Temperature 97.8 F Pulse Rate 52 L 86 Respiratory Rate 17 16 Blood Pressure 136/89 148/78 H Pulse Oximetry 97 98 Oxygen Delivery Method Room Air Oxygen Flow Rate 0 Oxygen Delivery Method Room Air Oxygen Flow Rate 0 Const General: cooperative, healthy appearing and comfortable Resp Auscultation: clear to auscultation bilaterally Cardio Rate: abnormal rate Rhythm: abnormal rhythm GI Palpation: soft Auscultation: normal bowel sounds Objective Labs 11/03/24 14:26 11/03/24 14:26 Labs: Laboratory Results - last 24 hr 11/03/24 14:26 WBC 17.8 H RBC 3.87 L Hgb 11.8 L Hct 34.3 L MCV 88.7 MCH 30.4 MCHC 34.3 RDW 14.7 Plt Count 165 Neut % (Auto) 44.0 L Lymph % (Auto) 50.4 H [place] % (Auto) 4.6 Eos % (Auto) 0.6 L Baso % (Auto) 0.4 Neut # (Auto) 7800 H Lymph # (Auto) 9000 H [place] # (Auto) 800 Eos # (Auto) 100 Baso # (Auto) 100 PT 14.9 H INR 1.3 APTT 29 Sodium 135 L Potassium 4.4 Chloride 109 H Carbon Dioxide 20 L BUN 23 H Creatinine 0.99 Estimated GFR > 60 BUN/Creatinine Ratio 23.2 H Glucose 186 H Calcium 8.6 Total Bilirubin 0.7 AST 21 ALT 17 Alkaline Phosphatase 74 Total Protein 6.5 Albumin 4.0 Globulin 2.5 Albumin/Globulin Ratio 1.6 Blood Type B Positive Antibody Screen Negative Assessment & Plan Assessment and plan (1) RB (rectal bleeding): Status: Acute Plan I have discussed the presenting symptoms, labs and imaging with the ER provider and agree with the decision for admission. I have reviewed the labs presonally showing the WBC of 17.8 and hgb of 11.8, electrolytes are normal. CT abd did not show any acute abnormalities. Dr. Aaron Santiago in [place] has seen and evaluated Davon Alanis in [place] using audio/ video techniques of telemedicine with the patients consent and nursing assistance. Assessment & Plan narrative: 1. Rectal bleeding- We will monitor for continued bleeding, stop the Eliquis and pt advised not to take any more ibuprofen. 2. acute blood loss anemia- hgb appears close to baseline, will check hemoglobin every 6 hours overnight, 3. CLL- wbc has been slowly increasing over the past years and currenly is 17.8, I do not feel this is due to infectious causes. Continue to monitor. Time-Based Coding :: [TOTAL MINUTES] spent with patient and on the chart (including review of chart, obtaining history, exam, reviewing outside data, placing orders, documenting exam and treatment plan, and counseling patient) on [DATE].
[2024-11-04] MEDS: PANTOPRAZOLE DR 20 MG TABLET 40 MG PO (05:57)
[2024-11-04 06:20] LABS: Add Manual Diff / Slide Review NO; Hematocrit 33.7 % (41-53); Hemoglobin 11.3 g/dL (13.5-17.5); Lymphocytes Absolute Auto 15100 /uL (1100-4500); Mean Corpuscular HGB Conc 33.4 % (30-36); Mean Corpuscular Hemoglobin 30.3 PG (26-34); Mean Corpuscular Volume 90.6 fL (80-100); Platelet Count 150 X10^3/uL (150-400)
[2024-11-04 06:33] LABS: Blood Urea Nitrogen 17 mg/dL (9-20); Calcium 8.7 mg/dL (8.4-10.2); Carbon Dioxide 25 mmol/L (22-32); Chloride 108 mmol/L (98-107); Estimated Glomerular Filt Rate > 60 mL/min (>60); Glucose 104 mg/dL (70-99); HEMOLYSIS < 15 (0-50); Potassium 4.3 mmol/L (3.4-5.1); Sodium 138 mmol/L (137-145)
[2024-11-04 08:00] VITALS: BP 126/75; PULSE 58; RESP 16; TEMP 36.2; O2SAT 96
[2024-11-04 09:02] VITALS: BP 126/75
[2024-11-04] MEDS: FINASTERIDE 5 MG TABLET PO (09:02)
[2024-11-04] MEDS: METOPROLOL ER 25 MG TABLET PO (09:02)
[2024-11-04] MEDS: EZETIMIBE 10 MG TABLET PO (09:02)
--- NOTE | 2024-11-04 11:49 | P.DS_ITS ---
History of Present Illness History of Present Illness Date Patient Seen: 11/04/24 Chief complaint: Blood in stools x 3 days Narrative: Chief complaint: Painless rectal bleeding on Eliquis History of present illness: 11/04: pt is a 79 yo with a hx of a-fib, HTN, CLL who presents to the ER tonight due to rectal pain. He states that the rectal bleeding occurs when having a BM, he states that the blood is right colored, It was more intense earlier this morning but has tapered off in the evening. He is currently on Eliquis BID and has been taking ibuprofen on a regular basis BID-TID at home for aches & pains. His last colonoscopy was 2 years and he reports that only a few polyps were found. He has some weakness but this is chronic, Hospital course: 11/04: Bleeding stopped hemoglobin dropped from 13-11 patient was asymptomatic. Patient discharged home in stable condition Review of systems: No weakness No chest pain shortness for breath No abdominal pain diarrhea No neurologic symptoms Physical exam: Alert and oriented no acute distress Heart irregularly irregular rhythm Lungs clear from apices to bases Abdomen nontender bowel sounds present Extremities no edema Neuro nonfocal Assessment and plan: Painless rectal bleeding with history of colonic polyp that was the source of bleeding before had polypectomy 2 years ago patient is due for follow-up colonoscopy outpatient patient advised not to restart Eliquis until he follows up with his PCP 35 minutes were involved in the management of this patient's discharge including direct patient contact, review of chart consultation with primary care and consultants Discharge Providers Provider Date of admission: 11/03/24 20:27 Discharge Date: 11/04/24 Primary care physician: Roge Jacob MD Discharge provider: Bong Lopes MD Exam Vital Signs (past 8 hours): - 11/04/24 08:00 11/04/24 09:02 Temperature 97.1 F L Pulse Rate 58 L Respiratory Rate 16 Blood Pressure 126/75 126/75 Pulse Oximetry 96 Oxygen Flow Rate 0 Oxygen Delivery Method Room Air Oxygen Flow Rate 0 Objective Labs 11/04/24 05:40 11/04/24 05:40 Labs: Laboratory Results - last 24 hr 11/03/24 11/04/24 14:26 05:40 WBC 17.8 H 21.3 H RBC 3.87 L 3.72 L Hgb 11.8 L 11.3 L Hct 34.3 L 33.7 L MCV 88.7 90.6 MCH 30.4 30.3 MCHC 34.3 33.4 RDW 14.7 14.7 Plt Count 165 150 Neut % (Auto) 44.0 L 23.0 L D Lymph % (Auto) 50.[address] [place] % (Auto) 4.6 4.8 Eos % (Auto) 0.6 L 1.1 L Baso % (Auto) 0.4 0.2 Neut # (Auto) 7800 H 4900 Lymph # (Auto) [address] [place] # (Auto) 800 1000 H Eos # (Auto) 100 200 Baso # (Auto) 100 0 PT 14.9 H INR 1.3 APTT 29 Sodium 135 L 138 Potassium 4.4 4.3 Chloride 109 H 108 H Carbon Dioxide 20 L 25 BUN 23 H 17 Creatinine 0.99 1.00 Estimated GFR > 60 > 60 BUN/Creatinine Ratio 23.2 H 17.0 Glucose 186 H 104 H Calcium 8.6 8.7 Total Bilirubin 0.7 AST 21 ALT 17 Alkaline Phosphatase 74 Total Protein 6.5 Albumin 4.0 Globulin 2.5 Albumin/Globulin Ratio 1.6 Blood Type B Positive Antibody Screen Negative PFSH Medical History BPH w urinary obs/LUTS History of cardioversion Presence of cardiac device (~12/01/20) BPH (benign prostatic hyperplasia) GERD (gastroesophageal reflux disease) CLL (chronic lymphocytic leukemia) (2019) Tinnitus (~2015) Recurrent sinusitis Hearing loss (~2017) Blindness (~2014) Colon polyps (~2019) Screening for prostate cancer Postoperative atrial fibrillation Erectile dysfunction due to arterial disease Elevated PSA Hernia Surgical History Hx of hand surgery Hx of sinus surgery (2021) Hx of repair of left rotator cuff (2014) Anesthesia Broken humerus (~2004) History of hernia repair (~1987) History of arthroscopy of knee (~1983) H/O mitral valve replacement (2014) H/O circumcision Hx of CABG (2014) Family History Father BPH (benign prostatic hyperplasia) Diabetes mellitus Hearing impairment History of heart disease Mother Cancer Coronary artery disease Hyperlipidemia Inflammatory bowel disease Thyroid disease Sister Mental health problem Grandfather History of heart disease Grandmother Cancer Grandfather Mental health problem Family/Other Cancer Social History marital status: number of children: 2 household members: spouse occupational status: employed Smoking Status: Never smoker alcohol intake: current caffeine: Yes (coffee) Type(s) of exercise: additional frequency: 3-4 times per week Discharge Plan Discharge Plan Patient Disposition: Home Discharge orders & Medications Prescriptions: Continued finasteride 5 mg tablet 5 mg PO DAILY Qty: 90 3RF atorvastatin 40 mg tablet 40 mg PO ONCE PM Qty: 90 3RF ezetimibe 10 mg tablet 10 mg PO DAILY Qty: 90 1RF famotidine 10 mg tablet 10 mg PO DAILY Patient Comments: in evening aspirin 81 mg Capsule 81 mg PO DAILY tadalafil 5 mg tablet 5 mg PO DAILY metoprolol succinate 25 mg tablet extended release 24 hr 25 mg PO BEDTIME budesonide 0.5 mg/2 mL suspension for nebulization 0.25 mg inhalation BID Patient Comments: Patient is using 1.2mg zolpidem [Ambien] 5 mg tablet 5 mg PO BEDTIME PRN (Reason: Sleep) Qty: 20 0RF Patient Comments: taken for jet lag 1-2 times/year Rx Instructions: prn sleep difficulty due to travel ibuprofen 400 mg tablet 400 mg PO DAILY PRN (Reason: Pain) Discontinued Eliquis 5 mg tablet 5 mg PO BID Follow up/Referrals: Roge Jacob MD [Primary Care Provider, Family Practice] Diet/Activity/Treatments Diet: Diet as Tolerated Visit Report/Discharge Packet Instructions: DI for Rectal Bleeding Stand Alone Forms: Patient Portal/API, Stroke Signs & Symptoms Discharge Data Primary Care Provider: Roge Jacob Attending Provider: Aaron Santiago Admit Date/Time: 11/03/24 20:27
--- NOTE | 2024-11-04 12:21 | CM.DPNOTE ---
DCP note MORTGAGE LOAN COUNSELOR received notice from nursing staff pt needing medical priority boarding pass. dc today. not on this MORTGAGE LOAN COUNSELOR caseload, pt social security specialist out to lunch. This MORTGAGE LOAN COUNSELOR completed pass and handed to pt and spouse in room. deny other needs or questions at this time. Sun Luciano, ROSALINDA
--- NOTE | 2024-11-04 13:39 | PC.NURSE ---
Pt is dressed and ready for discharge home with Spouse. IV has been removed. Pt has a ferry pass. Went over d/c instructions with Pt -discussed d/c meds, time of last dose, reviewed stroke education, contacting PCP if bleeding increases or he has dizziness, following up with PCP this week (Pt has already contacted his PCP for an appointment) and stopping his Eliquis and Ibuprofen until approved by his PCP. Encouraged Pt to drink plenty of fluids to prevent constipation or dehydration. Pt denied further questions and was taken out via w/c by PARTICIPANT ADMINISTRATOR to POV with Spouse and all belongings.
--- NOTE | 2024-11-04 13:47 | CM.DANOTE ---
Initial DCP Assessment Visit Note Reviewed EMR and team rounds for pt's medical status and updates. Met with pt at bedside to introduce self and role, pt was found to be alert/oriented/dressed, and getting ready for home d/c. He has been medically cleared, his spouse will be transporting him. He was provided with a Preferential Medical Boarding Pass for his return trip. No further CM d/c assistance or resource needs are identified at this time. Payor: Medicare PCP: Dr. Jacob Pt is a 79 year-old M who presented to the ED last evening with c/o bloody diarrhea and abdominal cramping for the last 2-days. No other symptoms. CT imaging was negative for a GI bleed, however he was seen to have diverticulosis. Plan was made to admit for further monitoring, and was also given 1L of lactated ringer. Pt denied any CM assistance needs. He will f/u with his PCP OP. Discharge Planning/Care Management CM Discharge Assessment Start: 11/03/24 23:16 Freq: Status: Discharge Protocol: Document 11/04/24 13:46 DPL (Rec: 11/04/24 13:47 DPL [id number]) Discharge Planning Assessment Assigned Discharge ROSALINDA Hamilton [employer] Instructor Advance Directives? Yes Advance Directives Yes on File History Provided By Patient,Medical Record Has Patient been No admitted in last 30 days? Prior Living House Arrangements Household Members spouse Type of Drives own vehicle transporation used prior to admit Independent with ADL Yes 's Is patient alert and Yes oriented? Comment N/A Caregiver for No Another Comment No identified home d/c needs at this time. Barriers to No Discharge Discharge Plan Home Transportation Spouse Arrangement Referrals Initiated None needed Review Status In Process Please Provide Date 11/04/24 Initial DC Assessment Was Performed
== END 2024-11-04 13:43 | disposition home or self-care (01) ==
LOC: ED 18:00 → AC 20:28
PROVIDERS: Family Medicine; Admitting Provider Internal Medicine; Emergency Provider Family Medicine; PCP Family Medicine; Referring Provider Family Medicine; Visit Provider Internal Medicine
DX: K62.5 Hemorrhage of anus and rectum (principal); D62 Acute posthemorrhagic anemia; I48.91 Unspecified atrial fibrillation; I25.10 Atherosclerotic heart disease of native coronary artery without angina pectoris; E78.5 Hyperlipidemia, unspecified; N40.0 Benign prostatic hyperplasia without lower urinary tract symptoms; I10 Essential (primary) hypertension; Z85.6 Personal history of leukemia; Z79.01 Long term (current) use of anticoagulants; Z95.1 Presence of aortocoronary bypass graft; Z95.2 Presence of prosthetic heart valve; Z86.0100 Personal history of colon polyps, unspecified; R10.9 Unspecified abdominal pain
CPT/HCPCS: 36415; 74174; 80048; 80053; 81003; 82272; 85025; 85610; 85730; 86850; 86900; 86901; 96360; 96361; 99284; G0378; Q9967

== ENCOUNTER → 2024-11-19 10:18 | Outpatient (CLI) | payer MEDICARE, OTHER, SELFPAY ==
[2024-11-03 23:27] VITALS: BMI 23.7
[2024-11-19 19:21] LABS: Add Manual Diff / Slide Review NO; Hematocrit 35.5 % (41-53); Hemoglobin 11.7 g/dL (13.5-17.5); Lymphocytes Absolute Auto 8100 /uL (1100-4500); Mean Corpuscular HGB Conc 32.9 % (30-36); Mean Corpuscular Hemoglobin 29.5 PG (26-34); Mean Corpuscular Volume 89.5 fL (80-100); Platelet Count 215 X10^3/uL (150-400)
[2024-11-19 19:30] LABS: Alanine Aminotransferase 14 IU/L (<50); Albumin 4.1 g/dL (3.5-5.0); Albumin Globulin Ratio 1.6 (1.0-2.8); Alkaline Phosphatase 71 U/L (38-126); Blood Urea Nitrogen 17 mg/dL (9-20); Calcium 8.8 mg/dL (8.4-10.2); Carbon Dioxide 25 mmol/L (22-32); Chloride 107 mmol/L (98-107); Estimated Glomerular Filt Rate > 60 mL/min (>60); Globulin 2.5 g/dL (1.7-4.1); Glucose 106 mg/dL (70-99); HEMOLYSIS < 15 (0-50); Potassium 4.7 mmol/L (3.4-5.1); Sodium 138 mmol/L (137-145); Total Protein 6.6 g/dL (6.3-8.2)
[2024-11-19 20:00] LABS: TSH w/ Reflex to FT4 5.55 uIU/mL (0.47-4.68)
[2024-11-19 20:29] LABS: Free T4, Direct Thyroxine 1.67 ng/dL (0.78-2.19)
[2024-11-19 20:35] LABS: Folate 5.6 ng/mL (2.76-20.0); Vitamin B12 299 pg/mL (239-931)
== END ==
PROVIDERS: PCP Family Medicine; Visit Provider Family Medicine
DX: G45.3 Amaurosis fugax (principal); R00.1 Bradycardia, unspecified; I48.92 Unspecified atrial flutter; C91.10 Chronic lymphocytic leukemia of B-cell type not having achieved remission; I25.10 Atherosclerotic heart disease of native coronary artery without angina pectoris; E78.2 Mixed hyperlipidemia; Z79.899 Other long term (current) drug therapy; Z95.3 Presence of xenogenic heart valve
CPT/HCPCS: 80053; 82607; 82746; 84155; 84165; 84439; 84443; 85025; 85651; 86038